=== PATIENT | male | born 1950 | race Caucasian/White ===

== ENCOUNTER 2016-10-05 14:57 | Emergency (ER) | payer OTHER ==
--- NOTE | 2016-10-05 15:22 | ER Document Report ---
ED General - General Chief Complaint: Flu Symptoms Stated Complaint: BODY PAIN Time Seen by Provider: 10/05/16 15:15 Mode of Arrival: Ambulatory Information source: Patient Notes: 65-year-old male presents with one-day duration of fevers cough. Patient admits to sore throat denies any history smoking has a history of prostate enlargement Patient admits to diarrhea TRAVEL OUTSIDE OF THE [place]S. IN LAST 30 DAYS: No - HPI Onset: Yesterday Onset/Duration: Sudden Quality of pain: Achy Severity: Mild Pain Level: 1 Associated symptoms: Body/muscle aches, Diarrhea Exacerbated by: Denies Relieved by: Denies Similar symptoms previously: No Recently seen / treated by doctor: No - Related Data Allergies/Adverse Reactions: No Known Allergies Allergy (Verified 10/05/16 15:06) Past Medical History - Social History Smoking Status: Former Smoker Cigarette use (# per day): No Chew tobacco use (# tins/day): No Smoking Education Provided: No Frequency of alcohol use: None Drug Abuse: None Family History: Reviewed & Not Pertinent Patient has suicidal ideation: No Patient has homicidal ideation: No Renal/ Medical History: Denies: Hx Peritoneal Dialysis Surgical Hx: Negative - Immunizations Hx Diphtheria, Pertussis, Tetanus Vaccination: No Review of Systems - Review of Systems Notes: PHYSICAL EXAMINATION: GENERAL: Well-appearing, well-nourished and in no acute distress. HEAD: Atraumatic, normocephalic. EYES: Pupils equal round and reactive to light, extraocular movements intact, sclera anicteric, conjunctiva are normal. ENT: Nares patent, oropharynx clear without exudates. Moist mucous membranes. NECK: Normal range of motion, supple without lymphadenopathy LUNGS: Breath sounds clear to auscultation bilaterally and equal. No wheezes rales or rhonchi. HEART: Regular rate and rhythm without murmurs ABDOMEN: Soft, nontender, nondistended abdomen. No guarding, no rebound. No masses appreciated. Musculoskeletal: Normal range of motion, no pitting or edema. No cyanosis. NEUROLOGICAL: Cranial nerves grossly intact. Normal speech, normal gait. Normal sensory, motor exams PSYCH: Normal mood, normal affect. SKIN: Warm, Dry, normal turgor, no rashes or lesions noted. Physical Exam - Vital signs Vitals: Temp Pulse Resp BP Pulse Ox 98.4 F 62 18 122/67 96 10/05/16 15:06 10/05/16 15:06 10/05/16 15:06 10/05/16 15:06 10/05/16 15:06 Course - Re-evaluation Re-evalutation: 10/05/16 15:23 Patient overall looks well strep and flu and x-ray pending otherwise vital signs are stable patient is in no distress 10/05/16 15:58 Strep was positive, patient does admit to family member had strep one week ago We'll start patient on antibiotics no allergies noted Patient instructed on risks and benefits of medications prescribed. Denies any concerns regarding such. After performing a Medical Screening Examination, I estimate there is LOW risk for ACUTE CORONARY SYNDROME, RESPIRATORY FAILURE, SEPSIS OR MENINGITIS, thus I consider the discharge disposition reasonable. I have reevaluated this patient multiple times and no significant life threatening changes are noted. The patient and I have discussed the diagnosis and risks, and we agree with discharging home with close follow-up. We also discussed returning to the Emergency Department immediately if new or worsening symptoms occur. We have discussed the symptoms which are most concerning (e.g., changing or worsening pain, trouble swallowing or breathing, neck stiffness, fever) that necessitate immediate return. - Vital Signs Vital signs: Temp Pulse Resp BP Pulse Ox 98.4 F 62 18 122/67 96 10/05/16 15:06 10/05/16 15:06 10/05/16 15:06 10/05/16 15:06 10/05/16 15:06 - Diagnostic Test Radiology reviewed: Image reviewed, Reports reviewed - No acute abnormality Discharge - Discharge Clinical Impression: Strep pharyngitis, Body aches Fever Qualifiers: Fever type: unspecified Qualified Code(s): R50.9 - Fever, unspecified Condition: Stable Disposition: HOME, SELF-CARE Instructions: Strep Throat ([facility]) Additional Instructions: Follow up with your physician tomorrow for further care or return to the ED IMMEDIATELY if symptoms worsen or new concerns occur. If you cannot afford to follow up with your primary care physician a list of low cost clinics have been provided at the end of your discharge papers as well. Prescriptions: Amoxicillin 875 mg PO BID #20 tablet
[2016-10-05 16:00] VITALS: BP 114/67
[2016-10-05] MEDS ORDERED: ACETAMINOPHEN SUSP 160 MG/5 ML ORAL SYRING ONE (19:27)
== END 2016-10-05 16:02 | disposition home or self-care (01) ==
LOC: ER 14:57
DX: J02.0 Streptococcal pharyngitis (principal); R52 Pain, unspecified; R50.9 Fever, unspecified; R05 Cough; J02.9 Acute pharyngitis, unspecified; Z87.891 Personal history of nicotine dependence
CPT/HCPCS: 71020; 87804; 87880; 99283

== ENCOUNTER 2018-04-23 11:15 | Emergency (ER) | payer OTHER ==
--- NOTE | 2018-04-23 12:16 | ER Document Report ---
ED Medical Screen (RME) - General TRAVEL OUTSIDE OF THE U.S. IN LAST 30 DAYS: No <JOSE MIGUEL ENG - Last Filed: 04/23/18 12:15> <RICHARD GARRETT - Last Filed: 04/23/18 16:36> - General Chief Complaint: Abdominal Pain Stated Complaint: ABDOMINAL PAIN Time Seen by Provider: 04/23/18 12:14 Notes: 67 years old male with a history of BPH and hyperlipidemia presents today with sudden onset of right lower quadrant abdominal pain since this morning around 730. Since it is been persistent since then and increase in intensity starting to have nausea. No fever chills or other constitutional symptoms. Pain radiating down the leg according to him. Sharp tenderness noted over the right lower quadrant no rebound tenderness or guarding. (JOSE MIGUEL ENG) - Related Data Allergies/Adverse Reactions: No Known Allergies Allergy (Verified 10/05/16 15:06) Past Medical History - Social History Chew tobacco use (# tins/day): No Frequency of alcohol use: None Drug Abuse: None Renal/ Medical History: Denies: Hx Peritoneal Dialysis Past Surgical History: Reports: Hx Orthopedic Surgery - left elbow - Immunizations Hx Diphtheria, Pertussis, Tetanus Vaccination: No <JOSE MIGUEL ENG - Last Filed: 04/23/18 12:15> - Vital signs Vitals: Temp Pulse Resp BP Pulse Ox 97.6 F 78 20 150/97 H 94 04/23/18 11:32 04/23/18 11:32 04/23/18 11:32 04/23/18 11:32 04/23/18 11:32 Course - Laboratory Result Diagrams: 04/23/18 12:24 04/23/18 12:24 <RICHARD GARRETT - Last Filed: 04/23/18 16:36> - Vital Signs Vital signs: Temp Pulse Resp BP Pulse Ox 97.6 F 78 20 150/97 H 94 04/23/18 11:32 04/23/18 11:32 04/23/18 11:32 04/23/18 11:32 04/23/18 11:32 - Laboratory Laboratory results interpreted by me: 04/23/18 04/23/18 12:24 12:24 RBC 5.72 H Est GFR (Non-Af Amer) 59 L
[2018-04-23] MEDS ORDERED: ONDANSETRON HCL INJ/PF 4 MG/2 ML SDV IV ONE (12:26)
[2018-04-23] MEDS ORDERED: NORMAL SALINE 1000 ML 1,000 ML IV ONE (12:29)
[2018-04-23 12:41] LABS: ABSOLUTE BASOPHILS # (AUTO) 0.1 10^3/uL (0.0-0.2); ABSOLUTE LYMPHOCYTES (AUTO) 1.9 10^3/uL (0.5-4.7); ABSOLUTE MONOCYTES (AUTO) 0.8 10^3/uL (0.1-1.4); ABSOLUTE NEUT (AUTO) 4.6 10^3/uL (1.7-8.2); BASOPHILS % (AUTO) 0.7 % (0-2); EOSINOPHILS % (AUTO) 0.5 % (0-6); HEMATOCRIT 47.8 % (37.9-51.0); HEMOGLOBIN 16.6 g/dL (13.5-17.0); LYMPHOCYTES % (AUTO) 26.2 % (13-45); MEAN CORPUSCULAR HEMOGLOBIN 29.1 pg (27.0-33.4); MEAN CORPUSCULAR HGB CONC 34.7 g/dL (32.0-36.0); MEAN CORPUSCULAR VOLUME 84 fl (80-97); MONOCYTES % (AUTO) 10.4 % (3-13); PLATELET COUNT 253 10^3/uL (150-450); RED BLOOD COUNT 5.72 10^6/uL (4.35-5.55); RED CELL DISTRIBUTION WIDTH 13.7 % (11.5-14.0); SEGMENTED NEUTROPHILS % (AUTO) 62.2 % (42-78); TOTAL CELLS COUNTED % (AUTO) 100 %; WHITE BLOOD COUNT 7.4 10^3/uL (4.0-10.5)
[2018-04-23 12:52] LABS: APPEARANCE,URINE CLEAR; BILIRUBIN,URINE NEGATIVE (NEGATIVE); COLOR,URINE YELLOW; GLUCOSE, URINE NEGATIVE (NEGATIVE); KETONES,URINE NEGATIVE (NEGATIVE); LEUKOCYTE ESTERASE,URINE NEGATIVE (NEGATIVE); NITRITE,URINE NEGATIVE (NEGATIVE); PROTEIN,URINE NEGATIVE (NEGATIVE); URINE SPECIFIC GRAVITY 1.017; UROBILINOGEN,URINE NEGATIVE mg/dL (<2.0)
[2018-04-23 12:55] LABS: ALANINE AMINOTRANSFERASE 26 U/L (21-72); ALBUMIN 4.4 g/dL (3.5-5.0); ALKALINE PHOSPHATASE 106 U/L (38-126); ANION GAP 13 (5-19); ASPARTATE AMINO TRANSFERASE 21 U/L (17-59); BILIRUBIN,DIRECT 0.3 mg/dL (0.0-0.4); BILIRUBIN,TOTAL 0.7 mg/dL (0.2-1.3); BLOOD UREA NITROGEN 16 mg/dL (7-20); CALCIUM 9.8 mg/dL (8.4-10.2); CARBON DIOXIDE 27 mmol/L (22-30); CHLORIDE 103 mmol/L (98-107); GLUCOSE 108 mg/dL (75-110); POTASSIUM 4.5 mmol/L (3.6-5.0); SODIUM 142.5 mmol/L (137-145); TOTAL PROTEIN 7.7 g/dL (6.3-8.2)
[2018-04-23] MEDS ORDERED: KETOROLAC TROMETHAMINE INJ/PF 30 MG/1 ML SDV IV ONE (14:25)
[2018-04-23] MEDS ORDERED: ONDANSETRON HCL INJ/PF 4 MG/2 ML SDV ONE (14:46)
--- NOTE | 2018-04-23 15:44 | RADIOLOGY REPORT (SQ) ---
EXAM DESCRIPTION: CT ABD/PELVIS WITH IV ORAL COMPLETED DATE/TIME: 04/23/2018 3:20 pm REASON FOR STUDY: Right lower quadrant pain rule out appendicitis COMPARISON: None. TECHNIQUE: CT scan of the abdomen and pelvis performed using helical scanning technique with dynamic intravenous contrast injection. No oral contrast. Images reviewed with lung, soft tissue, and bone windows. Reconstructed coronal and sagittal MPR images reviewed. Delayed images for evaluation of the urinary system also acquired. All images stored on PACS. All CT scanners at this facility use dose modulation, iterative reconstruction, and/or weight based d osing when appropriate to reduce radiation dose to as low as reasonably achievable (ALARA). [facility]: Dose Right [facility]: CareDose [facility]: Dose Right [facility]: Teradose 4D [facility]: POKKT CONTRAST TYPE AND DOSE: contrast/concentration: Isovue 350.00 mg/ml; Total Contrast Delivered: 100.0 ml; Total Saline Delivered: 72.0 ml RENAL FUNCTION: GFR 59. RADIATION DOSE: CT Rad equipment meets quality standard of care and radiation dose reduction techniq ues were employed. CTDIvol: 10.5 - 15.5 mGy. DLP: 1454 mGy-cm.. LIMITATIONS: None. FINDINGS: LOWER CHEST: No significant findings. No nodules or infiltrates. LIVER: Normal size. No masses. No dilated ducts. SPLEEN: Normal size. No focal lesions. PANCREAS: No masses. No significant calcifications. No adjacent inflammation or peripancreatic fluid collections. Pancreatic duct not dilated. GALLBLADDER: No identified stones by CT criteria. No inflammatory changes to suggest cholecystitis. ADRENAL GLANDS: No significant masses or asymmetry. RIGHT KIDNEY AND URETER: No solid masses. No significant calcifications. No hydronephrosis or hyd roureter. LEFT KIDNEY AND URETER: No solid masses. No significant calcifications. No hydronephrosis or hydr oureter. AORTA AND VESSELS: No aneurysm. No dissection. Renal arteries, SMA, celiac without stenosis. RETROPERITONEUM: No retroperitoneal adenopathy, hemorrhage or masses. BOWEL AND PERITONEAL CAVITY: Scattered diverticuli in the descending and sigmoid colon. No masses or inflammatory changes. No free fluid or peritoneal masses. APPENDIX: Normal. PELVIS: No mass. No free fluid. Normal bladder. ABDOMINAL WALL: No masses. No hernias. BONES: No significant or acute findings. OTHER: No other significant finding. IMPRESSION: COLONIC DIVERTICULOSIS. NO CT EVIDENCE OF DIVERTICULITIS. NO OTHER SIGNIFICANT OR ACUT E FINDING IN THE ABDOMEN OR PELVIS ON CT SCAN WITH IV CONTRAST. NORMAL APPENDIX. TECHNICAL DOCUMENTATION: JOB ID: [id number] Quality ID # [id number]: Final reports with documentation of one or more dose reduction techniques (e.g., Au tomated exposure control, adjustment of the mA and/or kV according to patient size, use of iterative reconstruction technique) 2010 [employer]- All Rights Reserved Reading location - IP/workstation name: [email or web address]
--- NOTE | 2018-04-23 16:38 | ER Document Report ---
ED GI/ - General Chief Complaint: Abdominal Pain Stated Complaint: ABDOMINAL PAIN Time Seen by Provider: 04/23/18 12:14 Mode of Arrival: Ambulatory Information source: Patient Notes: Patient is a 67-year-old male who was sent to the emergency room by [facility]. 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 He states he was at work today and he was starting to go up steps as he lifted his right leg up to make a step he felt severe pain in his right lower quadrant he states felt like a "hot knife in butter" in his right lower quadrant. He states he first went to the [facility] and was evaluated and the provider felt that he needed further evaluation because of some of his movements with his legs indicated he might have a retrograde appendix. And so he was sent to the [facility] where they reevaluated him and told him he needed to come to [facility] ER and get evaluated. Patient states his pain when he moves is close to 8 or 9. Out of 10. He states that when he is just laying there it is a 3 or 4. He denies any nausea or vomiting denies any other symptoms. But states that it is right lower quadrant more lateral and inferior than the umbilicus. He denies any nausea or vomiting. Patient denies any testicular pain. He has no scrotal sac pain. No discomfort and the male genitalia area at all. TRAVEL OUTSIDE OF THE [place] IN LAST 30 DAYS: No - HPI Patient complains to provider of: Abdominal pain. No: Urinary retention Onset: This afternoon Timing/Duration: Sudden, Persistent, Better Quality of pain: Burning, Sharp, Stabbing Severity at maximum: Severe Severity in ED: Moderate Pain Level: 3 Location: RLQ Sexual history: Inactive Associated symptoms: denies: Constipation, Diarrhea, Dysuria, Vomiting Exacerbated by: Standing, Movement, Walking Relieved by: Supine, Remaining still Similar symptoms previously: No Recently seen / treated by doctor: No - Related Data Allergies/Adverse Reactions: No Known Allergies Allergy (Verified 10/05/16 15:06) Past Medical History - General Information source: Patient - Social History Smoking Status: Never Smoker Cigarette use (# per day): No Chew tobacco use (# tins/day): No Smoking Education Provided: No Frequency of alcohol use: None Drug Abuse: None Family History: Reviewed & Not Pertinent Patient has suicidal ideation: No Patient has homicidal ideation: No Renal/ Medical History: Denies: Hx Peritoneal Dialysis Past Surgical History: Reports: Hx Orthopedic Surgery - left elbow - Immunizations Hx Diphtheria, Pertussis, Tetanus Vaccination: No Review of Systems - Review of Systems Constitutional: No symptoms reported EENT: No symptoms reported Cardiovascular: No symptoms reported Respiratory: No symptoms reported Gastrointestinal: See HPI, Abdominal pain Genitourinary: No symptoms reported Male Genitourinary: No symptoms reported Musculoskeletal: No symptoms reported Skin: No symptoms reported Hematologic/Lymphatic: No symptoms reported Neurological/Psychological: No symptoms reported -: Yes All other systems reviewed and negative Physical Exam - Vital signs Vitals: Temp Pulse Resp BP Pulse Ox 97.6 F 78 20 150/97 H 94 04/23/18 11:32 04/23/18 11:32 04/23/18 11:32 04/23/18 11:32 04/23/18 11:32 Interpretation: Hypertensive - Notes Notes: PHYSICAL EXAMINATION: GENERAL: patient is a well-nourished well-developed obese 67-year-old male who is in relatively good shape besides his weight. He is in no distress on physical examination is lying back in the gurney feeling relatively comfortable. HEAD: Atraumatic, normocephalic. EYES: Pupils equal round and reactive to light, extraocular movements intact, sclera anicteric, conjunctiva are normal. NECK: Normal range of motion, supple without lymphadenopathy LUNGS: Breath sounds clear to auscultation bilaterally and equal. No wheezes rales or rhonchi. HEART: Regular rate and rhythm without murmurs ABDOMEN: Examination of the abdomen shows patient has bowel sounds in all 4 quads although they are moderately quiet. He has distention that is noted in diffuse tympany to percussion greater in the upper quadrants than lower but present in all. Examination the area of question in the right lower quadrant shows it to be more inferior and lateral than it is umbilical. Deep palpation barely brings any discomfort to patient in the area which she states is the discomfort. When patient applies his finger to the exact spot of pain and he does a partial sit up I can palpate a little defect in the abdominal muscle wall. This is where his discomfort appears to be coming from. Testicular exam shows a good cremaster reflex and also shows both testicles hanging normal in length. There is no tenderness or pain to the examination of the male genitalia. Musculoskeletal: Normal range of motion, no pitting or edema. No cyanosis. NEUROLOGICAL: Normal speech, normal gait. Normal sensory, motor exams PSYCH: Normal mood, normal affect. SKIN: Warm, Dry, normal turgor, no rashes or lesions noted. Course - Re-evaluation Re-evalutation: 04/23/18 18:32 Patient's your course of stay was very uneventful. His labs were all normal his CT showed some diverticulosis but no diverticulitis. No abnormalities hardly at all. Since patient had no white count and no fever and his discomfort had gotten better I did not feel appropriate to treat with antibiotics at this time for a diverticulitis that was brewing. I believe that he has torn abdominal muscle in the right lower quadrant area. I do not feel herniation on physical examination although the defect is minimal I believe that this is where his discomfort is coming from so a defect in the abdominal wall muscle. I have discussed this with patient and informed him that anything can change and if he has increasing pain or discomfort if he has nausea or vomiting or he has testicular pain or discomfort to return to ER for recheck. - Vital Signs Vital signs: Temp Pulse Resp BP Pulse Ox 97.6 F 67 16 169/90 H 97 04/23/18 17:31 04/23/18 17:31 04/23/18 17:31 04/23/18 17:31 04/23/18 17:31 - Laboratory Result Diagrams: 04/23/18 12:24 04/23/18 12:24 Laboratory results interpreted by me: 04/23/18 04/23/18 12:24 12:24 RBC 5.72 H Est GFR (Non-Af Amer) 59 L Discharge - Discharge Clinical Impression: Abdominal pain Qualifiers: Abdominal location: right lower quadrant Qualified Code(s): R10.31 - Right lower quadrant pain Abdominal wall strain Qualifiers: Encounter type: initial encounter Qualified Code(s): S39.011A - Strain of muscle, fascia and tendon of abdomen, initial encounter Condition: Stable Disposition: HOME, SELF-CARE Instructions: Abdominal Pain ([facility]), Antispasmodics ([facility]), Family Physicians / Practices, Inguinal Strain ([facility]), Muscle Strain ([facility]) Additional Instructions: Home today and rest. Rest of the rest of the weekend. No lifting moving or pulling. As of indicated here CT and labs were normal. I believe that you have pulled a muscle in your lower abdominal area. Sometimes this is as bad as hurting the rib because anytime you lift move or pulled a muscle pull also you have pain. I am giving you a muscle relaxer for discomfort he may take Tylenol as well every 8 hours. Ibuprofen if you want to in between. Basically this means you can take Tylenol and then 4 hours later take Advil or ibuprofen and Tylenol 4 hours later Advil 4 hours after that. You can use ice or moist heat to the area for discomfort 3 times a day. I like to do ice for the first 48 hours and then moist heat after that. You may attempt to do her normal activities on Friday if you still have pain and discomfort you may want to follow-up with your primary care provider for recheck. As always he can return to ER for recheck if you have any concerns or problems over the weekend. Remember not to take more than 3 g of Tylenol in a 24-hour period either a all at once or in combination with any other Tylenol products. Prescriptions: Hydrocodone/Acetaminophen [Gaylord 5-325 Tablet] 1 each PO Q6 PRN #10 tablet PRN Reason: Methocarbamol [Robaxin 500 mg Tablet] 500 mg PO BID PRN #20 tablet PRN Reason: Forms: Elevated Blood Pressure, Return to Work
[2018-04-23 17:32] VITALS: BP 169/90
== END 2018-04-23 17:32 | disposition home or self-care (01) ==
LOC: ER 11:15
DX: S39.011A Strain of muscle, fascia and tendon of abdomen, initial encounter (principal); R10.31 Right lower quadrant pain; X58.XXXA Exposure to other specified factors, initial encounter
CPT/HCPCS: 99284; 96361; 96374; 96375; 36415; 83690; 85025; 80053; 81001; 74177; J1885; J2405; J7030

== ENCOUNTER 2018-12-09 12:55 | Inpatient (IN) | payer MEDICARE, OTHER ==
--- NOTE | 2018-12-09 13:38 | ER Document Report ---
ED Medical Screen (RME) - General Chief Complaint: Urinary Frequency Stated Complaint: URINARY PROBLEMS Time Seen by Provider: 12/09/18 13:33 Mode of Arrival: Ambulatory TRAVEL OUTSIDE OF THE [place]. IN LAST 30 DAYS: No - HPI Notes: 12/09/18 13:39 67-year-old male presents to the ED for evaluation of vomiting, tachycardia, abdominal pain, and was told by his primary care provider due to an elevated white count from a UTI that he was diagnosed with a couple days ago. States symptoms are becoming worse, reports weakness and dizziness. states that she noticed she is been breathing faster today, when was brought in, had to come by wheelchair because he is unable to stand. Is unsure of the antibiotic he has been taking for last couple days. I have greeted and performed a rapid initial assessment of this patient. There is a concern for urosepsis. A comprehensive ED assessment and evaluation of the patient, analysis of test results and completion of the medical decision making process will be conducted by additional ED providers. PHYSICAL EXAMINATION: GENERAL: Well-appearing, well-nourished and in mild distress HEAD: Atraumatic, normocephalic. NECK: Normal range of motion LUNGS: No respiratory distress cv: Sinus tachycardia ABD: Generalized abdominal pain Musculoskeletal: Normal range of motion NEUROLOGICAL: Normal speech, normal gait. PSYCH: Normal mood, normal affect. SKIN: Warm, Dry, normal turgor, no rashes or lesions noted. 12/09/18 13:44 - Related Data Allergies/Adverse Reactions: No Known Allergies Allergy (Verified 12/09/18 13:07) Past Medical History - General Information source: Patient Renal/ Medical History: Denies: Hx Peritoneal Dialysis Past Surgical History: Reports: Hx Orthopedic Surgery - left elbow - Immunizations Hx Diphtheria, Pertussis, Tetanus Vaccination: No
[2018-12-09 14:24] LABS: PARTIAL THROMBOPLASTIN TIME 33.9 SEC (23.5-35.8); PROTHROMBIN TIME 16.3 SEC (11.4-15.4)
[2018-12-09 14:26] LABS: HEMATOCRIT 48.6 % (37.9-51.0); HEMOGLOBIN 16.5 g/dL (13.5-17.0); MEAN CORPUSCULAR HEMOGLOBIN 28.6 pg (27.0-33.4); MEAN CORPUSCULAR VOLUME 84 fl (80-97); PLATELET COUNT 189 10^3/uL (150-450); RED BLOOD COUNT 5.77 10^6/uL (4.35-5.55); RED CELL DISTRIBUTION WIDTH 14.2 % (11.5-14.0); WHITE BLOOD COUNT 26.7 10^3/uL (4.0-10.5)
[2018-12-09 14:37] LABS: ALANINE AMINOTRANSFERASE 25 U/L (21-72); ALBUMIN 4.4 g/dL (3.5-5.0); ALKALINE PHOSPHATASE 106 U/L (38-126); ANION GAP 17 (5-19); ASPARTATE AMINO TRANSFERASE 24 U/L (17-59); BILIRUBIN,DIRECT 0.8 mg/dL (0.0-0.4); BILIRUBIN,TOTAL 2.1 mg/dL (0.2-1.3); BLOOD UREA NITROGEN 25 mg/dL (7-20); CARBON DIOXIDE 22 mmol/L (22-30); CHLORIDE 95 mmol/L (98-107); CREATINE KINASE 262 U/L (55-170); GLUCOSE 129 mg/dL (75-110); SODIUM 134.1 mmol/L (137-145); TOTAL PROTEIN 7.9 g/dL (6.3-8.2)
--- NOTE | 2018-12-09 14:45 | RADIOLOGY REPORT (SQ) ---
EXAM DESCRIPTION: CHEST SINGLE VIEW COMPLETED DATE/TIME: 12/09/2018 2:35 pm REASON FOR STUDY: tachy, vomiting, uti COMPARISON: None. EXAM PARAMETERS: NUMBER OF VIEWS: One view. TECHNIQUE: Single frontal radiographic view of the chest acquired. RADIATION DOSE: NA LIMITATIONS: None. FINDINGS: LUNGS AND PLEURA: No opacities, masses or pneumothorax. No pleural effusion. MEDIASTINUM AND HILAR STRUCTURES: No masses. Contour normal. HEART AND VASCULAR STRUCTURES: Heart normal in size. Normal vasculature. BONES: No acute findings. HARDWARE: None in the chest. OTHER: No other significant finding. IMPRESSION: NO ACUTE RADIOGRAPHIC FINDING IN THE CHEST. TECHNICAL DOCUMENTATION: JOB ID: [id number] [employer]- All Rights Reserved Reading location - IP/workstation name: [email or web address]
[2018-12-09 14:48] LABS: CREATINE KINASE MB 0.89 ng/mL (<4.55)
[2018-12-09 14:50] LABS: TROPONIN I < 0.012 ng/mL
[2018-12-09 14:53] LABS: ABSOLUTE LYMPHOCYTES# (MANUAL) 0.3 10^3/uL (0.5-4.7); ABSOLUTE MONOCYTES # (MANUAL) 2.4 10^3/uL (0.1-1.4); BAND NEUTROPHILS % (MANUAL) 10 % (3-5); BASOPHILS % (MANUAL) 0 % (0-2); EOSINOPHILS % (MANUAL) 0 % (0-6); LYMPHOCYTES % (MANUAL) 1 % (13-45); MONOCYTES % (MANUAL) 9 % (3-13); SEGMENTED NEUTROPHILS % (MAN) 80 % (42-78); TOTAL CELLS COUNTED 100
[2018-12-09 14:56] LABS: PLATELET COMMENT ADEQUATE; PLATELET LARGE PRESENT; RBC MORPHOLOGY COMMENT NORMO-CYTIC/CHROMIC
[2018-12-09] MEDS ORDERED: NORMAL SALINE 1000 ML 1,000 ML IV ONE ×3 (15:10→18:52)
[2018-12-09] MEDS ORDERED: FENTANYL CITRATE INJ/PF 100 MCG/2 ML AMPUL IV ONE (15:11)
[2018-12-09] MEDS ORDERED: ONDANSETRON HCL INJ/PF 4 MG/2 ML SDV IV ONE (15:11)
[2018-12-09 15:17] LABS: VENOUS BLOOD BASE EXCESS -2.7 mmol/L; VENOUS BLOOD PCO2 33.6 mmHg (35-63); VENOUS BLOOD PH 7.41 (7.30-7.42)
--- NOTE | 2018-12-09 15:18 | ER Document Report ---
Addendum entered and electronically signed by MIRANDA STILL NP 12/09/18 20:33: Course - Vital Signs Vital signs: Temp Pulse Resp BP Pulse Ox 99.3 F 120 H 34 H 143/131 H 99 12/09/18 19:53 12/09/18 13:33 12/09/18 20:01 12/09/18 20:01 12/09/18 20:01 - Laboratory Result Diagrams: 12/09/18 13:58 12/09/18 13:58 Laboratory results interpreted by me: 12/09/18 12/09/18 12/09/18 13:58 13:58 13:58 WBC 26.7 H RBC 5.77 H RDW 14.2 H Seg Neuts % (Manual) 80 H Band Neutrophils % 10 H Lymphocytes % (Manual) 1 L Abs Neuts (Manual) 24.0 H Abs Lymphs (Manual) 0.3 L Abs Monocytes (Manual) 2.4 H PT 16.3 H VBG pCO2 Sodium 134.1 L Chloride 95 L BUN 25 H Creatinine 1.64 H Est GFR ( Amer) 51 L Est GFR (Non-Af Amer) 42 L Glucose 129 H Total Bilirubin 2.1 H Direct Bilirubin 0.8 H Creatine Kinase 262 H Urine Protein Urine Ketones Urine Blood Urine Nitrite Urine Urobilinogen Ur Leukocyte Esterase 12/09/18 12/09/18 14:46 16:17 WBC RBC RDW Seg Neuts % (Manual) Band Neutrophils % Lymphocytes % (Manual) Abs Neuts (Manual) Abs Lymphs (Manual) Abs Monocytes (Manual) PT VBG pCO2 33.6 L Sodium Chloride BUN Creatinine Est GFR ( Amer) Est GFR (Non-Af Amer) Glucose Total Bilirubin Direct Bilirubin Creatine Kinase Urine Protein 100 H Urine Ketones 20 H Urine Blood MODERATE H Urine Nitrite POSITIVE H Urine Urobilinogen 2.0 H Ur Leukocyte Esterase LARGE H - EKG Interpretation by Me Rate: Tachycardia Additional EKG results interpreted by me: 12/09/18 20:33 Sinus tach rate of 111, QTc 441 Original Note: ED GI/ - General Chief Complaint: Urinary Frequency Stated Complaint: URINARY PROBLEMS Time Seen by Provider: 12/09/18 13:33 Mode of Arrival: Ambulatory Information source: Patient Notes: Patient presents with complaint of UTI. Patient states that he was placed on antibiotics 3 days ago although denies any improvement. Patient reports nausea vomiting and diarrhea today. Patient vomited once and had diarrhea x3 episodes. Patient reports fever of 101.1 today. Patient does complain of dysuria, frequency with some decreased urine output. Patient reports lower abdominal pain. Patient complains of low back pain and bilateral lower extremity pain. Patient states that his gait is off and he is walking as though he is drunk. Patient had outpatient lab work done in the office which showed an elevated white blood cell count and was advised to come here for further evaluation. TRAVEL OUTSIDE OF THE [place] IN LAST 30 DAYS: No - HPI Patient complains to provider of: Abdominal pain, Vomiting. No: Testicular pain Onset: Other - 3 days Timing/Duration: Worse Quality of pain: Achy Pain Level: 3 Location: Pelvis Associated symptoms: Diarrhea, Fever, Nausea, Urinary frequency, Vomiting. denies: Chest pain, Dizzy, Loss of appetite, Urinary hesitancy Exacerbated by: Denies Relieved by: Denies Similar symptoms previously: No Recently seen / treated by doctor: Yes - Related Data Allergies/Adverse Reactions: No Known Allergies Allergy (Verified 12/09/18 13:07) Past Medical History - General Information source: Patient - Social History Smoking Status: Former Smoker Frequency of alcohol use: None Drug Abuse: None Occupation: Cardiopulmonary Specialist Lives with: Family Family History: Reviewed & Not Pertinent Patient has suicidal ideation: No Patient has homicidal ideation: No - Past Medical History Cardiac Medical History: Denies: Hx Hypertension Endocrine Medical History: Denies: Hx Diabetes Mellitus Type 1, Hx Diabetes Mellitus Type 2 Renal/ Medical History: Reports: Hx Benign Prostatic Hyperplasia. Denies: Hx Kidney Stones, Hx Peritoneal Dialysis Past Surgical History: Reports: Hx Orthopedic Surgery - left elbow - Immunizations Hx Diphtheria, Pertussis, Tetanus Vaccination: No Review of Systems - Review of Systems Constitutional: Fever, Recent illness - Recently treated for UTI EENT: No symptoms reported Cardiovascular: No symptoms reported. denies: Chest pain, Dizziness, Lightheaded Respiratory: Other - Tachypnea. denies: Cough Gastrointestinal: Abdominal pain, Nausea, Vomiting Genitourinary: Dysuria. denies: Flank pain Male Genitourinary: No symptoms reported Musculoskeletal: Back pain - Low back pain, Muscle pain - Right lateral leg pain Skin: No symptoms reported Hematologic/Lymphatic: No symptoms reported Neurological/Psychological: Weakness. denies: Lost consciousness, Headaches Physical Exam - Vital signs Vitals: Temp Pulse Resp BP Pulse Ox 98.8 F 120 H 38 H 136/91 H 96 12/09/18 13:33 12/09/18 13:33 12/09/18 13:33 12/09/18 13:33 12/09/18 13:33 - General General appearance: Alert In distress: Mild - HEENT Head: Normocephalic, Atraumatic Eyes: Normal Conjunctiva: Normal Nasal: Normal Mouth/Lips: Normal Mucous membranes: Dry Pharynx: Normal Neck: Normal - Respiratory Respiratory status: Tachypnea Chest status: Nontender Breath sounds: Normal Chest palpation: Normal - Cardiovascular Rhythm: Tachycardia Heart sounds: S1 appreciated, S2 appreciated Murmur: No - Abdominal Inspection: Normal Distension: No distension Bowel sounds: Normal Tenderness: Tender - lower pelvic Organomegaly: No organomegaly - Back Back: Tender - Lumbar paraspinal. No: CVA tenderness - Extremities General upper extremity: Normal inspection, Normal ROM General lower extremity: Normal inspection, Normal ROM - Neurological Neuro grossly intact: Yes Cognition: Normal Conway Coma Scale Eye Opening: Spontaneous Conway Coma Scale Verbal: Oriented Conway Coma Scale Motor: Obeys Commands Sameera Coma Scale Total: 15 - Psychological Associated symptoms: Normal affect, Normal mood - Skin Skin Temperature: Warm Skin Moisture: Dry Skin Color: Normal Course - Re-evaluation Re-evalutation: 12/09/18 15:[address] Bailey regarding patient presentation and antibiotic choice. Recommends empiric treatment for prostatitis given history of UTI symptoms without flank pain. Patient is pending CT imaging at this time. 12/09/18 17:[address] Vital regarding need for admission. Recommends having janice Roberts SENIOR CLINICIAN admit patient to telemetry. 12/09/18 17:46 Consulted with Janice Roberts SENIOR CLINICIAN regarding need for admission. Agrees to accept patient to telemetry at this time. - Vital Signs Vital signs: Temp Pulse Resp BP Pulse Ox 99.3 F 120 H 36 H 141/90 H 95 12/09/18 19:53 12/09/18 13:33 12/09/18 19:51 12/09/18 19:51 12/09/18 19:51 - Laboratory Result Diagrams: 12/09/18 13:58 12/09/18 13:58 Laboratory results interpreted by me: 12/09/18 12/09/18 12/09/18 13:58 13:58 13:58 WBC 26.7 H RBC 5.77 H RDW 14.2 H Seg Neuts % (Manual) 80 H Band Neutrophils % 10 H Lymphocytes % (Manual) 1 L Abs Neuts (Manual) 24.0 H Abs Lymphs (Manual) 0.3 L Abs Monocytes (Manual) 2.4 H PT 16.3 H VBG pCO2 Sodium 134.1 L Chloride 95 L BUN 25 H Creatinine 1.64 H Est GFR ( Amer) 51 L Est GFR (Non-Af Amer) 42 L Glucose 129 H Total Bilirubin 2.1 H Direct Bilirubin 0.8 H Creatine Kinase 262 H Urine Protein Urine Ketones Urine Blood Urine Nitrite Urine Urobilinogen Ur Leukocyte Esterase 12/09/18 12/09/18 14:46 16:17 WBC RBC RDW Seg Neuts % (Manual) Band Neutrophils % Lymphocytes % (Manual) Abs Neuts (Manual) Abs Lymphs (Manual) Abs Monocytes (Manual) PT VBG pCO2 33.6 L Sodium Chloride BUN Creatinine Est GFR ( Amer) Est GFR (Non-Af Amer) Glucose Total Bilirubin Direct Bilirubin Creatine Kinase Urine Protein 100 H Urine Ketones 20 H Urine Blood MODERATE H Urine Nitrite POSITIVE H Urine Urobilinogen 2.0 H Ur Leukocyte Esterase LARGE H 12/09/18 20:20 Labs- Entire Visit 12/09/18 12/09/18 12/09/18 13:58 13:58 13:58 WBC 26.7 H RBC 5.77 H Hgb 16.5 Hct 48.6 MCV 84 MCH 28.6 MCHC 34.0 RDW 14.2 H Plt Count 189 Total Counted 100 Seg Neutrophils % Not Reportable Seg Neuts % (Manual) 80 H Band Neutrophils % 10 H Lymphocytes % Not Reportable Lymphocytes % (Manual) 1 L Monocytes % Not Reportable Monocytes % (Manual) 9 Eosinophils % Not Reportable Eosinophils % (Manual) 0 Basophils % Not Reportable Basophils % (Manual) 0 Absolute Neutrophils Not Reportable Abs Neuts (Manual) 24.0 H Absolute Lymphocytes Not Reportable Abs Lymphs (Manual) 0.3 L Absolute Monocytes Not Reportable Abs Monocytes (Manual) 2.4 H Absolute Eosinophils Not Reportable Absolute Eos (Manual) 0.0 Absolute Basophils Not Reportable Abs Basophils (Manual) 0.0 Dohle Bodies PRESENT Large Platelets PRESENT Platelet Comment ADEQUATE RBC Morph Comment NORMO-CYTIC/CHROMIC PT 16.3 H INR 1.30 APTT 33.9 VBG pH VBG pCO2 VBG HCO3 VBG Base Excess Sodium 134.1 L Potassium 4.0 Chloride 95 L Carbon Dioxide 22 Anion Gap 17 BUN 25 H Creatinine 1.64 H Est GFR ( Amer) 51 L Est GFR (Non-Af Amer) 42 L Glucose 129 H Lactic Acid Calcium 9.0 Total Bilirubin 2.1 H Direct Bilirubin 0.8 H Neonat Total Bilirubin Not Reportable Neonat Direct Bilirubin Not Reportable Neonat Indirect Bili Not Reportable AST 24 ALT 25 Alkaline Phosphatase 106 Creatine Kinase 262 H CK-MB (CK-2) Troponin I Total Protein 7.9 Albumin 4.4 Lipase Urine Color Urine Appearance Urine pH Ur Specific Randolph Urine Protein Urine Glucose (UA) Urine Ketones Urine Blood Urine Nitrite Urine Bilirubin Urine Urobilinogen Ur Leukocyte Esterase Urine WBC (Auto) Urine RBC (Auto) Urine Bacteria (Auto) Urine WBC Clumps Squamous Epi Cells Auto U Non-Squamous Epis Auto Urine Mucus (Auto) Urine Ascorbic Acid 12/09/18 12/09/18 12/09/18 13:58 13:58 13:58 WBC RBC Hgb Hct MCV MCH MCHC RDW Plt Count Total Counted Seg Neutrophils % Seg Neuts % (Manual) Band Neutrophils % Lymphocytes % Lymphocytes % (Manual) Monocytes % Monocytes % (Manual) Eosinophils % Eosinophils % (Manual) Basophils % Basophils % (Manual) Absolute Neutrophils Abs Neuts (Manual) Absolute Lymphocytes Abs Lymphs (Manual) Absolute Monocytes Abs Monocytes (Manual) Absolute Eosinophils Absolute Eos (Manual) Absolute Basophils Abs Basophils (Manual) Dohle Bodies Large Platelets Platelet Comment RBC Morph Comment PT INR APTT VBG pH VBG pCO2 VBG HCO3 VBG Base Excess Sodium Potassium Chloride Carbon Dioxide Anion Gap BUN Creatinine Est GFR ( Amer) Est GFR (Non-Af Amer) Glucose Lactic Acid 2.0 Calcium Total Bilirubin Direct Bilirubin Neonat Total Bilirubin Neonat Direct Bilirubin Neonat Indirect Bili AST ALT Alkaline Phosphatase Creatine Kinase CK-MB (CK-2) 0.89 Troponin I < 0.012 Total Protein Albumin Lipase 83.7 Urine Color Urine Appearance Urine pH Ur Specific Randolph Urine Protein Urine Glucose (UA) Urine Ketones Urine Blood Urine Nitrite Urine Bilirubin Urine Urobilinogen Ur Leukocyte Esterase Urine WBC (Auto) Urine RBC (Auto) Urine Bacteria (Auto) Urine WBC Clumps Squamous Epi Cells Auto U Non-Squamous Epis Auto Urine Mucus (Auto) Urine Ascorbic Acid 12/09/18 12/09/18 14:46 16:17 WBC RBC Hgb Hct MCV MCH MCHC RDW Plt Count Total Counted Seg Neutrophils % Seg Neuts % (Manual) Band Neutrophils % Lymphocytes % Lymphocytes % (Manual) Monocytes % Monocytes % (Manual) Eosinophils % Eosinophils % (Manual) Basophils % Basophils % (Manual) Absolute Neutrophils Abs Neuts (Manual) Absolute Lymphocytes Abs Lymphs (Manual) Absolute Monocytes Abs Monocytes (Manual) Absolute Eosinophils Absolute Eos (Manual) Absolute Basophils Abs Basophils (Manual) Dohle Bodies Large Platelets Platelet Comment RBC Morph Comment PT INR APTT VBG pH 7.41 VBG pCO2 33.6 L VBG HCO3 21.0 VBG Base Excess -2.7 Sodium Potassium Chloride Carbon Dioxide Anion Gap BUN Creatinine Est GFR ( Amer) Est GFR (Non-Af Amer) Glucose Lactic Acid Calcium Total Bilirubin Direct Bilirubin Neonat Total Bilirubin Neonat Direct Bilirubin Neonat Indirect Bili AST ALT Alkaline Phosphatase Creatine Kinase CK-MB (CK-2) Troponin I Total Protein Albumin Lipase Urine Color YELLOW Urine Appearance CLOUDY Urine pH 6.0 Ur Specific Randolph 1.036 Urine Protein 100 H Urine Glucose (UA) NEGATIVE Urine Ketones 20 H Urine Blood MODERATE H Urine Nitrite POSITIVE H Urine Bilirubin NEGATIVE Urine Urobilinogen 2.0 H Ur Leukocyte Esterase LARGE H Urine WBC (Auto) >182 Urine RBC (Auto) 33 Urine Bacteria (Auto) 3+ Urine WBC Clumps OCC Squamous Epi Cells Auto 1 U Non-Squamous Epis Auto 4 Urine Mucus (Auto) RARE Urine Ascorbic Acid NEGATIVE - Diagnostic Test Radiology reviewed: Reports reviewed Discharge - Discharge Clinical Impression: Bandemia UTI (urinary tract infection) Qualifiers: Urinary tract infection type: site unspecified Hematuria presence: with hematuria Qualified Code(s): N39.0 - Urinary tract infection, site not specified Leukocytosis Qualifiers: Leukocytosis type: bandemia Qualified Code(s): D72.825 - Bandemia Condition: Fair Disposition: ADMITTED INPATIENT Admitting Provider: Zahraa (Hospitalist) Unit Admitted: Telemetry
[2018-12-09] MEDS ORDERED: CEFTRIAXONE 1 GM/D5W RTU 1 GM/50 ML RTUPB IV ONE (15:32)
[2018-12-09] MEDS ORDERED: CIPROFLOXACIN 400 MG/D5W RTU 400 MG/200 ML RTUPB IV ONE (15:33)
[2018-12-09 15:38] LABS: LIPASE 83.7 U/L (23-300)
--- NOTE | 2018-12-09 16:21 | RADIOLOGY REPORT (SQ) ---
EXAM DESCRIPTION: CT ABD/PELVIS WITH IV ONLY COMPLETED DATE/TIME: 12/09/2018 4:09 pm REASON FOR STUDY: lower abd pain, low back pain, +fever, elev WBC COMPARISON: None. TECHNIQUE: CT scan of the abdomen and pelvis performed using helical scanning technique with dynamic intravenous contrast injection. No oral contrast. Images reviewed with lung, soft tissue, and bone windows. Reconstructed coronal and sagittal MPR images reviewed. Delayed images for evaluation of the urinary system also acquired. All images stored on PACS. All CT scanners at this facility use dose modulation, iterative reconstruction, and/or weight based d osing when appropriate to reduce radiation dose to as low as reasonably achievable (ALARA). [facility]: Dose Right [facility]: CareDose [facility]: Dose Right [facility]: Teradose 4D [facility]: Quench CONTRAST TYPE AND DOSE: contrast/concentration: Isovue 300.00 mg/ml; Total Contrast Delivered: 98.0 ml; Total Saline Delivered: 70.0 ml RENAL FUNCTION: GFR > 60. RADIATION DOSE: CT Rad equipment meets quality standard of care and radiation dose reduction techniq ues were employed. CTDIvol: 10.7 - 15.5 mGy. DLP: 1529 mGy-cm.. LIMITATIONS: None. FINDINGS: LOWER CHEST: No significant findings. No nodules or infiltrates. LIVER: Normal size. No masses. No dilated ducts. SPLEEN: Normal size. No focal lesions. PANCREAS: No masses. No significant calcifications. No adjacent inflammation or peripancreatic fluid collections. Pancreatic duct not dilated. GALLBLADDER: No identified stones by CT criteria. No inflammatory changes to suggest cholecystitis. ADRENAL GLANDS: No significant masses or asymmetry. RIGHT KIDNEY AND URETER: No solid masses. No significant calcifications. No hydronephrosis or hyd roureter. LEFT KIDNEY AND URETER: No solid masses. No significant calcifications. No hydronephrosis or hydr oureter. AORTA AND VESSELS: No aneurysm. No dissection. Renal arteries, SMA, celiac without stenosis. RETROPERITONEUM: No retroperitoneal adenopathy, hemorrhage or masses. BOWEL AND PERITONEAL CAVITY: Diverticulosis descending and sigmoid colon. No masses or inflammatory changes. No free fluid or peritoneal masses. APPENDIX: Normal. PELVIS: No mass. No free fluid. Normal bladder. ABDOMINAL WALL: No masses. No hernias. BONES: No significant or acute findings. OTHER: No other significant finding. IMPRESSION: Diverticulosis without evidence of diverticulitis. TECHNICAL DOCUMENTATION: JOB ID: [id number] Quality ID # [id number]: Final reports with documentation of one or more dose reduction techniques (e.g., Au tomated exposure control, adjustment of the mA and/or kV according to patient size, use of iterative reconstruction technique) 2010 [employer]- All Rights Reserved Reading location - IP/workstation name: [email or web address]USReyes
[2018-12-09 16:46] LABS: APPEARANCE,URINE CLOUDY; BILIRUBIN,URINE NEGATIVE (NEGATIVE); GLUCOSE, URINE NEGATIVE (NEGATIVE); KETONES,URINE 20 mg/dL (NEGATIVE); LEUKOCYTE ESTERASE,URINE LARGE (NEGATIVE); NITRITE,URINE POSITIVE (NEGATIVE); PROTEIN,URINE 100 mg/dL (NEGATIVE); URINE SPECIFIC GRAVITY 1.036
[2018-12-09 16:48] LABS: COLOR,URINE YELLOW
[2018-12-09] MEDS ORDERED: ALBUTEROL SULFATE 0.083% NEB 2.5 MG/3 ML AMPUL NEB PRN (18:53)
[2018-12-09] MEDS ORDERED: PROMETHAZINE HCL INJ 25 MG/1 ML VIAL IV PRN (19:01)
[2018-12-09] MEDS ORDERED: ONDANSETRON HCL INJ/PF 4 MG/2 ML SDV IV PRN (19:01)
[2018-12-09] MEDS ORDERED: MAG HYDROX/AL HYDROX/SIMETH SUSP 30 ML UDCUP PO PRN (19:01)
--- NOTE | 2018-12-09 19:05 | EKG REPORT ---
SEVERITY:- ABNORMAL ECG - SINUS TACHYCARDIA NONSPECIFIC T ABNORMALITIES, INFERIOR LEADS NONSPECIFIC ST-T CHANGES INFERIOR AND ANTERIOR LEADS. : Confirmed by: Al Macias MD 09-Dec-2018 19:05:15
--- NOTE | 2018-12-09 19:14 | PDOC H&P ---
History of Present Illness Admission Date/PCP: 12/09/18 17:51 MARILEE RODRIGUEZ PA-C Patient complains of: dysuria History of Present Illness: NAKIA AVINA is a 67 year old male with past medical history significant only for BPH who presented today with a complaint of 3 days of dysuria, urinary frequency, fatigue and chills, and generalized malaise. TMax at home 101.1 Evaluation in the emergency department reveals tachycardia, tachypnea, leukocytosis (WBCs 26.7), with bandemia, LANE (creatinine 1.64 with baseline of 1.22) urinalysis revealing UTI. Chest x-ray, EKG and CT of the abdomen and pelvis are benign. He is referred to the hospitalist service for admission and management of urinary tract infection resulting in sepsis. Past Medical History Cardiac Medical History: Reports: None Pulmonary Medical History: Reports: None EENT Medical History: Reports: None Neurological Medical History: Reports: None Endocrine Medical History: Reports: None Renal/ Medical History: Reports: Other - BPH Malignancy Medical History: Reports: None GI Medical History: Reports: None Musculoskeltal Medical History: Reports: None Skin Medical History: Reports: None Psychiatric Medical History: Reports: None Traumatic Medical History: Reports: None Hematology: Reports: None Infectious Medical History: Reports: None Past Surgical History Past Surgical History: Reports: Orthopedic Surgery - left elbow Social History Information Source: Patient Lives with: Family Smoking Status: Former Smoker Frequency of Alcohol Use: None Hx Recreational Drug Use: No Hx Prescription Drug Abuse: No - Advance Directive Resuscitation Status: Full Code Surrogate healthcare decision maker:: Patient's Family History Family History: Reviewed & Not Pertinent Parental Family History Reviewed: Yes Children Family History Reviewed: Yes Sibling(s) Family History Reviewed.: Yes Medication/Allergy Allergies/Adverse Reactions: No Known Allergies Allergy (Verified 12/09/18 13:07) Review of Systems Constitutional: PRESENT: chills, fatigue, fever(s), weakness. ABSENT: headache(s), weight gain, weight loss Eyes: ABSENT: visual disturbances Ears: ABSENT: hearing changes Cardiovascular: ABSENT: chest pain, dyspnea on exertion, edema, orthropnea, palpitations Respiratory: ABSENT: cough, hemoptysis Gastrointestinal: ABSENT: abdominal pain, constipation, diarrhea, hematemesis, hematochezia, nausea, vomiting Genitourinary: PRESENT: dysuria, hematuria Musculoskeletal: ABSENT: joint swelling Integumentary: ABSENT: rash, wounds Neurological: ABSENT: abnormal gait, abnormal speech, confusion, dizziness, focal weakness, syncope Psychiatric: ABSENT: anxiety, depression, homidical ideation, suicidal ideation Endocrine: ABSENT: cold intolerance, heat intolerance, polydipsia, polyuria Hematologic/Lymphatic: ABSENT: easy bleeding, easy bruising Physical Exam Vital Signs: Temp Pulse Resp BP Pulse Ox 98.8 F 120 H 37 H 141/86 H 94 12/09/18 13:33 12/09/18 13:33 12/09/18 16:04 12/09/18 15:01 12/09/18 16:04 Intake & Output 12/08/18 12/09/18 12/10/18 06:59 06:59 06:59 Intake Total 1050 Balance 1050 Weight 90 kg General appearance: PRESENT: no acute distress, disheveled, obese, well- developed, well-nourished Head exam: PRESENT: atraumatic, normocephalic Eye exam: PRESENT: conjunctiva pink, EOMI, PERRLA. ABSENT: scleral icterus Ear exam: PRESENT: normal external ear exam Mouth exam: PRESENT: moist, tongue midline Neck exam: ABSENT: carotid bruit, JVD, lymphadenopathy, thyromegaly Respiratory exam: PRESENT: clear to auscultation vikas, symmetrical, tachypnea, unlabored. ABSENT: rales, rhonchi, wheezes Cardiovascular exam: PRESENT: RRR, +S1, +S2, tachycardia. ABSENT: diastolic murmur, rubs, systolic murmur Pulses: PRESENT: normal dorsalis pedis pul Vascular exam: PRESENT: normal capillary refill GI/Abdominal exam: PRESENT: normal bowel sounds, soft, tenderness. ABSENT: distended, guarding, mass, organolmegaly, rebound Rectal exam: PRESENT: deferred Extremities exam: PRESENT: full ROM. ABSENT: calf tenderness, clubbing, pedal edema Neurological exam: PRESENT: alert, awake, oriented to person, oriented to place, oriented to time, oriented to situation, CN II-XII grossly intact. ABSENT: motor sensory deficit Psychiatric exam: PRESENT: appropriate affect, normal mood. ABSENT: homicidal ideation, suicidal ideation Skin exam: PRESENT: dry, intact, warm. ABSENT: cyanosis, rash Results Laboratory Results: 12/09/18 13:58 12/09/18 13:58 12/09/18 12/09/18 12/09/18 13:58 13:58 13:58 WBC 26.7 H RBC 5.77 H Hgb 16.5 Hct 48.6 MCV 84 MCH 28.6 MCHC 34.0 RDW 14.2 H Plt Count 189 Seg Neutrophils % Not Reportable Lymphocytes % Not Reportable Monocytes % Not Reportable Eosinophils % Not Reportable Basophils % Not Reportable Absolute Neutrophils Not Reportable Absolute Lymphocytes Not Reportable Absolute Monocytes Not Reportable Absolute Eosinophils Not Reportable Absolute Basophils Not Reportable VBG pH VBG pCO2 VBG HCO3 VBG Base Excess Sodium 134.1 L Potassium 4.0 Chloride 95 L Carbon Dioxide 22 Anion Gap 17 BUN 25 H Creatinine 1.64 H Est GFR ( Amer) 51 L Est GFR (Non-Af Amer) 42 L Glucose 129 H Lactic Acid 2.0 Calcium 9.0 Total Bilirubin 2.1 H AST 24 ALT 25 Alkaline Phosphatase 106 Total Protein 7.9 Albumin 4.4 Lipase Urine Color Urine Appearance Urine pH Ur Specific [place] Urine Protein Urine Glucose (UA) Urine Ketones Urine Blood Urine Nitrite Ur Leukocyte Esterase Urine WBC (Auto) Urine RBC (Auto) 12/09/18 12/09/18 12/09/18 13:58 14:46 16:17 WBC RBC Hgb Hct MCV MCH MCHC RDW Plt Count Seg Neutrophils % Lymphocytes % Monocytes % Eosinophils % Basophils % Absolute Neutrophils Absolute Lymphocytes Absolute Monocytes Absolute Eosinophils Absolute Basophils VBG pH 7.41 VBG pCO2 33.6 L VBG HCO3 21.0 VBG Base Excess -2.7 Sodium Potassium Chloride Carbon Dioxide Anion Gap BUN Creatinine Est GFR ( Amer) Est GFR (Non-Af Amer) Glucose Lactic Acid Calcium Total Bilirubin AST ALT Alkaline Phosphatase Total Protein Albumin Lipase 83.7 Urine Color YELLOW Urine Appearance CLOUDY Urine pH 6.0 Ur Specific [place] 1.036 Urine Protein 100 H Urine Glucose (UA) NEGATIVE Urine Ketones 20 H Urine Blood MODERATE H Urine Nitrite POSITIVE H Ur Leukocyte Esterase LARGE H Urine WBC (Auto) >182 Urine RBC (Auto) 33 12/09/18 12/09/18 13:58 13:58 Creatine Kinase 262 H CK-MB (CK-2) 0.89 Troponin I < 0.012 Impressions: Chest X-Ray 12/09/18 13:37 IMPRESSION: NO ACUTE RADIOGRAPHIC FINDING IN THE CHEST. Abdomen/Pelvis CT 12/09/18 15:22 IMPRESSION: Diverticulosis without evidence of diverticulitis. Assessment and Plan - Diagnosis (1) Sepsis Is this a current diagnosis for this admission?: Yes Plan: Sepsis due to UTI, present on admission, evidenced by fever, tachycardia, tachypnea, leukocytosis with bandemia, acute kidney injury, and acutely ill appearance. Urinalysis reveals UTI. Blood and urine cultures are pending. Patient has already received 2 L normal saline bolus by ED provider; will provide an additional 1 L bolus for total of 3 followed by units IV fluids. He is empirically placed on IV Rocephin. He is admitted to the medical floor on continuous cardiac telemetry. (2) UTI (urinary tract infection) Qualifiers: Urinary tract infection type: site unspecified Hematuria presence: with hematuria Qualified Code(s): N39.0 - Urinary tract infection, site not specified; R31.9 - Hematuria, unspecified Is this a current diagnosis for this admission?: Yes Plan: Urinalysis reveals UTI. Blood and urine cultures are pending. CT abdomen and pelvis is benign; diverticulosis noted without diverticulitis. No renal calculi or hydronephrosis noted. He is empirically placed on IV Rocephin; will adjust as cultures result. Continue IV fluids. Encourage p.o. fluids. Antiemetics and analgesics as needed. (3) Obesity Qualifiers: Obesity classification: adult class 1 (BMI 30 - 34.9) Is this a current diagnosis for this admission?: Yes Plan: Lifestyle modification and dietary discretion is advised. (4) BPH (benign prostatic hyperplasia) Is this a current diagnosis for this admission?: Yes Plan: Patient reports history of BPH We will resume home medication regiment once reconciled. - Time Time Spent with patient: 35 or more minutes Medications reviewed and adjusted accordingly: Yes Anticipated discharge: Home Within: within 48 hours - Inpatient Certification Based on my medical assessment, after consideration of the patient's comorbidities, presenting symptoms, or acuity I expect that the services needed warrant INPATIENT care.: Yes I certify that my determination is in accordance with my understanding of Medicare's requirements for reasonable and necessary INPATIENT services [42 CFR 412.3e].: Yes Medical Necessity: Need For IV Fluids, Need For Continuous Telemetry Monitoring, Need for IV Antibiotics
[2018-12-09] MEDS: NORMAL SALINE 1000 ML 1,000 ML IV PRN ×2 (20:47→23:11)
[2018-12-09] MEDS: ZOLPIDEM TARTRATE 5 MG TABLET PO PRN (23:11)
[2018-12-09] MEDS: FAMOTIDINE 20 MG TABLET PO SCH (23:12)
[2018-12-09] MEDS: HEPARIN SOD (PORCINE) 5,000 UNIT/ML 1 ML VIAL SUBCUT SCH (23:12)
[2018-12-09] MEDS: ACETAMINOPHEN 325 MG TABLET PO PRN (23:12)
[2018-12-10 06:03] LABS: HEMATOCRIT 39.2 % (37.9-51.0); MEAN CORPUSCULAR HEMOGLOBIN 28.6 pg (27.0-33.4); MEAN CORPUSCULAR HGB CONC 34.2 g/dL (32.0-36.0); MEAN CORPUSCULAR VOLUME 84 fl (80-97); PLATELET COUNT 127 10^3/uL (150-450); RED BLOOD COUNT 4.68 10^6/uL (4.35-5.55); RED CELL DISTRIBUTION WIDTH 14.3 % (11.5-14.0); WHITE BLOOD COUNT 23.5 10^3/uL (4.0-10.5)
[2018-12-10] MEDS: HEPARIN SOD (PORCINE) 5,000 UNIT/ML 1 ML VIAL SUBCUT SCH ×3 (06:07→22:20)
[2018-12-10] MEDS: NORMAL SALINE 1000 ML 1,000 ML IV PRN ×2 (06:07→15:23)
[2018-12-10 06:16] LABS: HEMOGLOBIN 13.4 g/dL (13.5-17.0)
[2018-12-10 06:17] LABS: ANION GAP 10 (5-19); BLOOD UREA NITROGEN 22 mg/dL (7-20); CALCIUM 7.6 mg/dL (8.4-10.2); CARBON DIOXIDE 19 mmol/L (22-30); CHLORIDE 107 mmol/L (98-107); GLUCOSE 111 mg/dL (75-110); POTASSIUM 3.6 mmol/L (3.6-5.0); SODIUM 136.3 mmol/L (137-145)
[2018-12-10 06:36] LABS: ABSOLUTE LYMPHOCYTES# (MANUAL) 1.9 10^3/uL (0.5-4.7); ABSOLUTE MONOCYTES # (MANUAL) 0.9 10^3/uL (0.1-1.4); BAND NEUTROPHILS % (MANUAL) 3 % (3-5); BASOPHILS % (MANUAL) 0 % (0-2); EOSINOPHILS % (MANUAL) 0 % (0-6); LYMPHOCYTES % (MANUAL) 8 % (13-45); MONOCYTES % (MANUAL) 4 % (3-13); SEGMENTED NEUTROPHILS % (MAN) 85 % (42-78); TOTAL CELLS COUNTED 100
[2018-12-10 06:38] LABS: PLATELET CLUMPS PRESENT; PLATELET COMMENT DECREASED; RBC MORPHOLOGY COMMENT NORMO-CYTIC/CHROMIC; TOXIC GRANULATION SLIGHT
[2018-12-10] MEDS ORDERED: HYDRALAZINE HCL INJ/PF 20 MG/1 ML SDV IV ONE (09:30)
[2018-12-10] MEDS: FAMOTIDINE 20 MG TABLET PO SCH ×2 (09:41→22:19)
[2018-12-10] MEDS: DOCUSATE SODIUM 100 MG CAPSULE PO SCH (09:41)
[2018-12-10] MEDS ORDERED: CEFTRIAXONE 1 GM/D5W RTU 50 ML IV SCH (10:00)
[2018-12-10] MEDS ORDERED: TAMSULOSIN HCL 0.4 MG CAP.SR.24H PO ONE ×2 (10:28→13:30)
[2018-12-10] MEDS: CEFTRIAXONE SODIUM 1,000 MG in DEXTROSE 5%-WATER 50 ML IV SCH (13:00)
[2018-12-10] MEDS: TAMSULOSIN HCL 0.4 MG CAP.SR.24H PO SCH (18:55)
--- NOTE | 2018-12-10 18:56 | PDOC PROGRESS REPORT ---
Subjective Progress Note for:: 12/10/18 Subjective:: NAKIA AVINA is a 67 year old male with past medical history significant only for BPH who was admitted 12/09/18 for Sepsis secondary to UTI. Patient was seen on morning rounds. He is found resting in bed on room air. He reports significant suprapubic abdominal distention and pain. He reports that he has frequent voids but is unable to entirely empty bladder. He does complain of continued intermittent dysuria. He denies fever, chills, chest pain, palpitations, dyspnea, orthopnea, cough, nausea and vomiting. He has no other questions or concerns today. No concerns per nursing Reason For Visit: UTI,SEPSIS Physical Exam Vital Signs: Temp Pulse Resp BP Pulse Ox 97.7 F 94 22 H 150/100 H 96 12/10/18 07:17 12/10/18 07:17 12/10/18 07:17 12/10/18 08:23 12/10/18 07:17 Intake & Output 12/09/18 12/10/18 12/11/18 06:59 06:59 06:59 Intake Total 4517 Output Total 500 Balance 4017 Weight 91.9 kg General appearance: PRESENT: no acute distress, cooperative, disheveled, obese, well-developed, well-nourished Head exam: PRESENT: atraumatic, normocephalic Eye exam: PRESENT: conjunctiva pink, EOMI, PERRLA. ABSENT: scleral icterus Ear exam: PRESENT: normal external ear exam Mouth exam: PRESENT: moist, tongue midline Neck exam: ABSENT: carotid bruit, JVD, lymphadenopathy, thyromegaly Respiratory exam: PRESENT: clear to auscultation vikas, symmetrical, unlabored. ABSENT: rales, rhonchi, wheezes Cardiovascular exam: PRESENT: RRR, +S1, +S2. ABSENT: diastolic murmur, rubs, systolic murmur Pulses: PRESENT: normal dorsalis pedis pul Vascular exam: PRESENT: normal capillary refill GI/Abdominal exam: PRESENT: distended, firm, normal bowel sounds, tenderness. ABSENT: guarding, mass, organolmegaly, rebound Rectal exam: PRESENT: deferred Extremities exam: PRESENT: full ROM. ABSENT: calf tenderness, clubbing, pedal edema Neurological exam: PRESENT: alert, awake, oriented to person, oriented to place, oriented to time, oriented to situation, CN II-XII grossly intact. ABSENT: motor sensory deficit Psychiatric exam: PRESENT: appropriate affect, normal mood. ABSENT: homicidal ideation, suicidal ideation Skin exam: PRESENT: dry, intact, warm. ABSENT: cyanosis, rash Results Laboratory Results: 12/10/18 05:17 12/10/18 05:17 12/09/18 12/09/18 12/09/18 13:58 13:58 13:58 WBC 26.7 H RBC 5.77 H Hgb 16.5 Hct 48.6 MCV 84 MCH 28.6 MCHC 34.0 RDW 14.2 H Plt Count 189 Seg Neutrophils % Not Reportable Lymphocytes % Not Reportable Monocytes % Not Reportable Eosinophils % Not Reportable Basophils % Not Reportable Absolute Neutrophils Not Reportable Absolute Lymphocytes Not Reportable Absolute Monocytes Not Reportable Absolute Eosinophils Not Reportable Absolute Basophils Not Reportable VBG pH VBG pCO2 VBG HCO3 VBG Base Excess Sodium 134.1 L Potassium 4.0 Chloride 95 L Carbon Dioxide 22 Anion Gap 17 BUN 25 H Creatinine 1.64 H Est GFR ( Amer) 51 L Est GFR (Non-Af Amer) 42 L Glucose 129 H Lactic Acid 2.0 Calcium 9.0 Total Bilirubin 2.1 H AST 24 ALT 25 Alkaline Phosphatase 106 Total Protein 7.9 Albumin 4.4 Lipase Urine Color Urine Appearance Urine pH Ur Specific [place] Urine Protein Urine Glucose (UA) Urine Ketones Urine Blood Urine Nitrite Ur Leukocyte Esterase Urine WBC (Auto) Urine RBC (Auto) 12/09/18 12/09/18 12/09/18 13:58 14:46 16:17 WBC RBC Hgb Hct MCV MCH MCHC RDW Plt Count Seg Neutrophils % Lymphocytes % Monocytes % Eosinophils % Basophils % Absolute Neutrophils Absolute Lymphocytes Absolute Monocytes Absolute Eosinophils Absolute Basophils VBG pH 7.41 VBG pCO2 33.6 L VBG HCO3 21.0 VBG Base Excess -2.7 Sodium Potassium Chloride Carbon Dioxide Anion Gap BUN Creatinine Est GFR ( Amer) Est GFR (Non-Af Amer) Glucose Lactic Acid Calcium Total Bilirubin AST ALT Alkaline Phosphatase Total Protein Albumin Lipase 83.7 Urine Color YELLOW Urine Appearance CLOUDY Urine pH 6.0 Ur Specific [place] 1.036 Urine Protein 100 H Urine Glucose (UA) NEGATIVE Urine Ketones 20 H Urine Blood MODERATE H Urine Nitrite POSITIVE H Ur Leukocyte Esterase LARGE H Urine WBC (Auto) >182 Urine RBC (Auto) 33 12/10/18 12/10/18 05:17 05:17 WBC 23.5 H RBC 4.68 Hgb 13.4 L D Hct 39.2 MCV 84 MCH 28.6 MCHC 34.2 RDW 14.3 H Plt Count 127 L Seg Neutrophils % Not Reportable Lymphocytes % Not Reportable Monocytes % Not Reportable Eosinophils % Not Reportable Basophils % Not Reportable Absolute Neutrophils Not Reportable Absolute Lymphocytes Not Reportable Absolute Monocytes Not Reportable Absolute Eosinophils Not Reportable Absolute Basophils Not Reportable VBG pH VBG pCO2 VBG HCO3 VBG Base Excess Sodium 136.3 L Potassium 3.6 Chloride 107 Carbon Dioxide 19 L Anion Gap 10 BUN 22 H Creatinine 1.13 Est GFR ( Amer) > 60 Est GFR (Non-Af Amer) > 60 Glucose 111 H Lactic Acid Calcium 7.6 L Total Bilirubin AST ALT Alkaline Phosphatase Total Protein Albumin Lipase Urine Color Urine Appearance Urine pH Ur Specific [place] Urine Protein Urine Glucose (UA) Urine Ketones Urine Blood Urine Nitrite Ur Leukocyte Esterase Urine WBC (Auto) Urine RBC (Auto) 12/09/18 12/09/18 13:58 13:58 Creatine Kinase 262 H CK-MB (CK-2) 0.89 Troponin I < 0.012 Impressions: Chest X-Ray 12/09/18 13:37 IMPRESSION: NO ACUTE RADIOGRAPHIC FINDING IN THE CHEST. Abdomen/Pelvis CT 12/09/18 15:22 IMPRESSION: Diverticulosis without evidence of diverticulitis. Assessment and Plan - Diagnosis (1) Sepsis Is this a current diagnosis for this admission?: Yes Plan: Sepsis due to UTI, present on admission, evidenced by fever, tachycardia, tachypnea, leukocytosis with bandemia, acute kidney injury, and acutely ill appearance. Urinalysis reveals UTI. Blood cultures have no growth at 24 hours Urine cultures are pending. Patient has already received 2 L normal saline bolus by ED provider; will provide an additional 1 L bolus for total of 3 followed by gentle IV fluids. He is empirically placed on IV Rocephin. He is admitted to the medical floor on continuous cardiac telemetry. (2) UTI (urinary tract infection) Qualifiers: Urinary tract infection type: site unspecified Hematuria presence: with hematuria Qualified Code(s): N39.0 - Urinary tract infection, site not specified; R31.9 - Hematuria, unspecified Is this a current diagnosis for this admission?: Yes Plan: Urinalysis reveals UTI. Urine cultures are pending. CT abdomen and pelvis is benign; diverticulosis noted without diverticulitis. No renal calculi or hydronephrosis noted. He is empirically placed on IV Rocephin; will adjust as cultures result. Continue IV fluids. Encourage p.o. fluids. Antiemetics and analgesics as needed. (3) Obesity Qualifiers: Obesity classification: adult class 1 (BMI 30 - 34.9) Is this a current diagnosis for this admission?: Yes Plan: Lifestyle modification and dietary discretion is advised. (4) BPH (benign prostatic hyperplasia) Is this a current diagnosis for this admission?: Yes Plan: Patient reports history of BPH Start on Flomax. (5) Acute urinary retention Is this a current diagnosis for this admission?: Yes Plan: Patient complains of suprapubic abdominal discomfort with urinary urgency, freq uency, and overflow incontinence. Post void bladder scan >400ml Sawyer catheter placed with immediate 1 L output. Likely secondary to combination of BPH and acute cystitis. Continue Flomax as above. Continue treatment for UTI. - Time Time Spent with patient: 25-34 minutes Medications reviewed and adjusted accordingly: Yes Anticipated discharge: Home
[2018-12-10] MEDS: ZOLPIDEM TARTRATE 5 MG TABLET PO PRN (22:20)
[2018-12-11 05:00] LABS: HEMATOCRIT 36.3 % (37.9-51.0); HEMOGLOBIN 12.4 g/dL (13.5-17.0); MEAN CORPUSCULAR HEMOGLOBIN 28.7 pg (27.0-33.4); MEAN CORPUSCULAR HGB CONC 34.2 g/dL (32.0-36.0); MEAN CORPUSCULAR VOLUME 84 fl (80-97); PLATELET COUNT 144 10^3/uL (150-450); RED BLOOD COUNT 4.33 10^6/uL (4.35-5.55); RED CELL DISTRIBUTION WIDTH 14.2 % (11.5-14.0); WHITE BLOOD COUNT 12.2 10^3/uL (4.0-10.5)
[2018-12-11 05:28] LABS: ANION GAP 7 (5-19); BLOOD UREA NITROGEN 21 mg/dL (7-20); CALCIUM 7.6 mg/dL (8.4-10.2); CARBON DIOXIDE 22 mmol/L (22-30); CHLORIDE 107 mmol/L (98-107); GLUCOSE 97 mg/dL (75-110); POTASSIUM 3.2 mmol/L (3.6-5.0); SODIUM 136.2 mmol/L (137-145)
[2018-12-11] MEDS: HEPARIN SOD (PORCINE) 5,000 UNIT/ML 1 ML VIAL SUBCUT SCH ×3 (05:29→21:34)
[2018-12-11] MEDS: NORMAL SALINE 1000 ML 1,000 ML IV PRN ×2 (05:38→15:42)
[2018-12-11] MEDS ORDERED: ZOLPIDEM TARTRATE 5 MG TABLET PO PRN (08:06)
[2018-12-11] MEDS: ACETAMINOPHEN 325 MG TABLET PO PRN (08:28)
[2018-12-11] MEDS: DOCUSATE SODIUM 100 MG CAPSULE PO SCH (09:20)
[2018-12-11] MEDS: FAMOTIDINE 20 MG TABLET PO SCH ×2 (09:23→21:29)
[2018-12-11] MEDS: POTASSIUM CHLORIDE 10 MEQ CAPSULE.ER PO SCH (09:23)
[2018-12-11] MEDS: CETIRIZINE 10 MG TABLET PO SCH (09:23)
[2018-12-11] MEDS: AMLODIPINE BESYLATE 5 MG TABLET PO SCH (09:24)
[2018-12-11] MEDS: CEFTRIAXONE SODIUM 1,000 MG in DEXTROSE 5%-WATER 50 ML IV SCH (13:00)
[2018-12-11] MEDS: TAMSULOSIN HCL 0.4 MG CAP.SR.24H PO SCH (17:09)
--- NOTE | 2018-12-11 18:25 | PDOC PROGRESS REPORT ---
Subjective Progress Note for:: 12/11/18 Subjective:: NAKIA AVINA is a 67 year old male with past medical history significant only for BPH who was admitted 12/09/18 for Sepsis secondary to UTI. Patient was seen on morning rounds. He is found resting in bed on room air. He reports he is feeling much better today. Looking forward to discharge home in near future. Reports good appetite. He denies fever, chills, chest pain, palpitations, dyspnea, orthopnea, cough, abdominal pain, nausea and vomiting. He has no questions or concerns today. No concerns per nursing Reason For Visit: UTI,SEPSIS Physical Exam Vital Signs: Temp Pulse Resp BP Pulse Ox 97.3 F 64 18 115/72 96 12/11/18 16:00 12/11/18 16:00 12/11/18 16:00 12/11/18 16:00 12/11/18 16:00 Intake & Output 12/10/18 12/11/18 12/12/18 06:59 06:59 06:59 Intake Total 4517 3050 1405 Output Total 500 3325 375 Balance 4017 -275 1030 Weight 91.9 kg 93.1 kg General appearance: PRESENT: no acute distress, cooperative - pleasant, well- developed, well-nourished - overweight Head exam: PRESENT: atraumatic, normocephalic Eye exam: PRESENT: conjunctiva pink, EOMI, PERRLA. ABSENT: scleral icterus Ear exam: PRESENT: normal external ear exam Mouth exam: PRESENT: moist, tongue midline Neck exam: ABSENT: carotid bruit, JVD, lymphadenopathy, thyromegaly Respiratory exam: PRESENT: clear to auscultation vikas, symmetrical, unlabored. ABSENT: rales, rhonchi, wheezes Cardiovascular exam: PRESENT: RRR, +S1, +S2. ABSENT: diastolic murmur, rubs, systolic murmur Pulses: PRESENT: normal dorsalis pedis pul Vascular exam: PRESENT: normal capillary refill GI/Abdominal exam: PRESENT: normal bowel sounds, soft. ABSENT: distended, guarding, mass, organolmegaly, rebound, tenderness Rectal exam: PRESENT: deferred Gentrourinary exam: PRESENT: indwelling catheter Extremities exam: PRESENT: full ROM. ABSENT: calf tenderness, clubbing, pedal edema Musculoskeletal exam: PRESENT: ambulatory Neurological exam: PRESENT: alert, awake, oriented to person, oriented to place, oriented to time, oriented to situation, CN II-XII grossly intact. ABSENT: motor sensory deficit Psychiatric exam: PRESENT: appropriate affect, normal mood. ABSENT: homicidal ideation, suicidal ideation Skin exam: PRESENT: dry, intact, warm. ABSENT: cyanosis, rash Results Laboratory Results: 12/11/18 04:00 12/11/18 04:00 12/11/18 12/11/18 04:00 04:00 WBC 12.2 H RBC 4.33 L Hgb 12.4 L Hct 36.3 L MCV 84 MCH 28.7 MCHC 34.2 RDW 14.2 H Plt Count 144 L Sodium 136.2 L Potassium 3.2 L Chloride 107 Carbon Dioxide 22 Anion Gap 7 BUN 21 H Creatinine 1.00 Est GFR ( Amer) > 60 Est GFR (Non-Af Amer) > 60 Glucose 97 Calcium 7.6 L 12/09/18 16:17 Clean Catch Midstream Urine Culture - Final Mixed Urogenital Ginger 12/09/18 12/09/18 13:58 13:58 Creatine Kinase 262 H CK-MB (CK-2) 0.89 Troponin I < 0.012 Impressions: Chest X-Ray 12/09/18 13:37 IMPRESSION: NO ACUTE RADIOGRAPHIC FINDING IN THE CHEST. Abdomen/Pelvis CT 12/09/18 15:22 IMPRESSION: Diverticulosis without evidence of diverticulitis. Assessment and Plan - Diagnosis (1) Sepsis Is this a current diagnosis for this admission?: Yes Plan: Improved; afebrile, tachycardia and tachypnea have resolved, leukocytosis trending down, creatinine at baseline. Sepsis due to UTI, present on admission, evidenced by fever, tachycardia, tachypnea, leukocytosis with bandemia, acute kidney injury, and acutely ill appearance. Urinalysis reveals UTI. Blood cultures have no growth at 48 hours Urine cultures shows mixed urogenital ginger. Patient has already received 2 L normal saline bolus by ED provider; will provide an additional 1 L bolus for total of 3 followed by gentle IV fluids. He is empirically placed on IV Rocephin; day #2. He is admitted to the medical floor on continuous cardiac telemetry. (2) UTI (urinary tract infection) Qualifiers: Urinary tract infection type: site unspecified Hematuria presence: with hematuria Qualified Code(s): N39.0 - Urinary tract infection, site not specified; R31.9 - Hematuria, unspecified Is this a current diagnosis for this admission?: Yes Plan: Urinalysis reveals UTI. Urine cultures shows mixed urogenital ginger. Are pending. CT abdomen and pelvis is benign; diverticulosis noted without diverticulitis. No renal calculi or hydronephrosis noted. He is empirically placed on IV Rocephin; day #2. We will plan on transitioning to p.o. Cipro tomorrow. As the patient has BPH and developed acute urinary retention while admitted requiring Sawyer placement, will provide prolonged course (21 days) and recommend urology follow-up. Continue IV fluids. Encourage p.o. fluids. Antiemetics and analgesics as needed. (3) Obesity Qualifiers: Obesity classification: adult class 1 (BMI 30 - 34.9) Is this a current diagnosis for this admission?: Yes Plan: Lifestyle modification and dietary discretion is advised. (4) BPH (benign prostatic hyperplasia) Is this a current diagnosis for this admission?: Yes Plan: Patient reports history of BPH Start on Flomax. Recommend urology follow-up. (5) Acute urinary retention Is this a current diagnosis for this admission?: Yes Plan: Patient complains of suprapubic abdominal discomfort with urinary urgency, frequency, and overflow incontinence. Post void bladder scan >400ml Sawyer catheter placed with immediate 1 L output. Likely secondary to combination of BPH and acute cystitis. Continue Flomax as above. Continue treatment for UTI. (6) Hypokalemia Is this a current diagnosis for this admission?: Yes Plan: P.o. potassium today. Repeat chemistry in the morning. - Time Time Spent with patient: 15-24 minutes Medications reviewed and adjusted accordingly: Yes Anticipated discharge: Home Within: within 24 hours
[2018-12-11] MEDS: ZOLPIDEM TARTRATE 5 MG TABLET PO PRN (21:29)
[2018-12-12 05:20] LABS: HEMATOCRIT 37.6 % (37.9-51.0); HEMOGLOBIN 12.8 g/dL (13.5-17.0); MEAN CORPUSCULAR HEMOGLOBIN 28.6 pg (27.0-33.4); MEAN CORPUSCULAR HGB CONC 34.1 g/dL (32.0-36.0); MEAN CORPUSCULAR VOLUME 84 fl (80-97); PLATELET COUNT 152 10^3/uL (150-450); RED BLOOD COUNT 4.47 10^6/uL (4.35-5.55); RED CELL DISTRIBUTION WIDTH 14.1 % (11.5-14.0); WHITE BLOOD COUNT 6.9 10^3/uL (4.0-10.5)
[2018-12-12 05:43] LABS: ANION GAP 6 (5-19); BLOOD UREA NITROGEN 20 mg/dL (7-20); CALCIUM 7.6 mg/dL (8.4-10.2); CARBON DIOXIDE 22 mmol/L (22-30); CHLORIDE 108 mmol/L (98-107); GLUCOSE 100 mg/dL (75-110); SODIUM 135.9 mmol/L (137-145)
[2018-12-12 05:45] LABS: POTASSIUM 3.6 mmol/L (3.6-5.0)
[2018-12-12] MEDS: NORMAL SALINE 1000 ML 1,000 ML IV PRN (06:20)
[2018-12-12] MEDS: HEPARIN SOD (PORCINE) 5,000 UNIT/ML 1 ML VIAL SUBCUT SCH ×2 (06:21→13:47)
[2018-12-12] MEDS: CETIRIZINE 10 MG TABLET PO SCH (10:54)
[2018-12-12] MEDS: AMLODIPINE BESYLATE 5 MG TABLET PO SCH (10:54)
[2018-12-12] MEDS: FAMOTIDINE 20 MG TABLET PO SCH (10:54)
[2018-12-12] MEDS: POTASSIUM CHLORIDE 10 MEQ CAPSULE.ER PO SCH (10:54)
[2018-12-12] MEDS: DOCUSATE SODIUM 100 MG CAPSULE PO SCH (10:54)
[2018-12-12] MEDS: CEFTRIAXONE SODIUM 1,000 MG in DEXTROSE 5%-WATER 50 ML IV SCH (13:43)
[2018-12-12] MEDS ORDERED: PHENAZOPYRIDINE HCL 200 MG TABLET PO SCH (14:00)
[2018-12-12 17:13] VITALS: BP 150/83
[2018-12-12] MEDS: TAMSULOSIN HCL 0.4 MG CAP.SR.24H PO SCH (17:39)
--- NOTE | 2018-12-12 19:11 | PDOC DISCHARGE SUMMARY ---
General - Admit/Disc Date/PCP Admission Date/Primary Care Provider: 12/09/18 17:51 [facility] Discharge Date: 12/12/18 - Discharge Diagnosis (1) Sepsis Is this a current diagnosis for this admission?: Yes Summary: Resolved. Leukocytosis, fever, tachycardia, tachypnea have resolved, creatinine at baseline. Sepsis due to UTI, present on admission, evidenced by fever, tachycardia, ta chypnea, leukocytosis with bandemia, acute kidney injury, and acutely ill appearance. Urinalysis reveals UTI. Blood cultures have no growth at 72 hours Urine cultures shows mixed urogenital ginger. Received aggressive IVF resuscitation. He was empirically placed on IV Rocephin for treatment of UTI; received 3 days of therapy. He is discharged with instructions to resume the Bactrim as prescribed by his urgent care provider the day of admission (patient shows me a full bottle; 10 days of therapy). (2) UTI (urinary tract infection) Is this a current diagnosis for this admission?: Yes Summary: rinalysis reveals UTI. Urine cultures shows mixed urogenital ginger. Are pending. CT abdomen and pelvis is benign; diverticulosis noted without diverticulitis. No renal calculi or hydronephrosis noted. He is empirically placed on IV Rocephin; received 3 days. Had planned to transition to p.o. Cipro; however, patient shows me a full bottle of Bactrim Ds (BID x 10 days) filled the day he was admitted. He is instructed to start this prescription and complete course of therapy as prescribed. He is provided a prescription for pyridium TID prn. Recommend urology follow-up secondary to development of urinary retention upon completion of antibiotic course. (3) Obesity Is this a current diagnosis for this admission?: Yes Summary: Lifestyle modification and dietary discretion is advised. (4) BPH (benign prostatic hyperplasia) Is this a current diagnosis for this admission?: Yes Summary: Patient reports history of BPH Continue on Flomax (home medication), start Proscar. Recommend urology follow-up. (5) Acute urinary retention Is this a current diagnosis for this admission?: Yes Summary: Likely secondary to combination of BPH and acute cystitis. Patient complained of suprapubic abdominal discomfort with urinary urgency, frequency, and overflow incontinence. Post void bladder scan >400ml; Woods catheter placed with immediate 1 L output. Patient was continued on his home medication, Flomax. Started on pyridium Woods catheter was removed early this morning. This afternoon, patient reported sensation of urinary hesitency and urinary retention. Post-void bladder scan again showed >400 ml. Woods cather placed w/ 550 mL urine output. He is discharged with woods/leg bag. He is started on Proscar to continue in addition to flomax. Recommend follow up with PCP and/or Urology following completion of antibiotic therapy for woods removal. (6) Hypokalemia Is this a current diagnosis for this admission?: Yes Summary: Resolved. - Additional Information Resuscitation Status: Full Code Discharge Diet: Regular Discharge Activity: Activity As Tolerated, Balance Activity w/Rest Prescriptions: Finasteride [Proscar] 5 mg PO DAILY #30 tablet Ondansetron [Zofran Odt 4 mg Tablet] 1 - 2 tab PO Q4HP PRN #10 tab.rapdis PRN Reason: Phenazopyridine HCl [Pyridium 200 mg Tablet] 200 mg PO Q8 #12 tablet Home Medications: Cetirizine HCl [Zyrtec 10 mg Tablet] 10 mg PO DAILY 12/10/18 Tamsulosin HCl [Flomax 0.4 mg Cap.sr] 0.4 mg PO DAILY 12/10/18 Zolpidem Tartrate [Ambien 5 mg Tablet] 10 mg PO HSP PRN 12/10/18 Acetaminophen [Tylenol 325 mg Tablet] 650 mg PO Q4HP PRN tablet 12/12/18 Amlodipine Besylate [Norvasc 5 mg Tablet] 5 mg PO DAILY #0 tablet 12/12/18 Docusate Sodium [Colace 100 mg Capsule] 100 mg PO DAILY capsule 12/12/18 Finasteride [Proscar] 5 mg PO DAILY #30 tablet 12/12/18 Ondansetron [Zofran Odt 4 mg Tablet] 1 - 2 tab PO Q4HP PRN #10 tab.rapdis 12/12/18 Phenazopyridine HCl [Pyridium 200 mg Tablet] 200 mg PO Q8 #12 tablet 12/12/18 Potassium Chloride [Klor-Con 10 Meq Capsule ER] 40 meq PO DAILY capsule.er 12/12/18 History of Present Illness History of Present Illness: NAKIA AVINA is a 67 year old male with past medical history significant only for BPH who presented today with a complaint of 3 days of dysuria, urinary frequency, fatigue and chills, and generalized malaise. TMax at home 101.1 Evaluation in the emergency department reveals tachycardia, tachypnea, leukocytosis (WBCs 26.7), with bandemia, LANE (creatinine 1.64 with baseline of 1.22) urinalysis revealing UTI. Chest x-ray, EKG and CT of the abdomen and pelvis are benign. He is referred to the hospitalist service for admission and management of urinary tract infection resulting in sepsis. Physical Exam Vital Signs: Temp Pulse Resp BP Pulse Ox 98.0 F 68 19 150/83 H 96 12/12/18 18:18 12/12/18 18:18 12/12/18 18:18 12/12/18 18:18 12/12/18 18:18 Intake & Output 12/11/18 12/12/18 12/13/18 06:59 06:59 06:59 Intake Total 3050 3263 970 Output Total 3325 2100 850 Balance -275 1163 120 Weight 93.1 kg 95 kg General appearance: PRESENT: no acute distress, cooperative, obese, well- developed, well-nourished Head exam: PRESENT: atraumatic, normocephalic Eye exam: PRESENT: conjunctiva pink, EOMI, PERRLA. ABSENT: scleral icterus Ear exam: PRESENT: normal external ear exam Mouth exam: PRESENT: moist, tongue midline Neck exam: ABSENT: carotid bruit, JVD, lymphadenopathy, thyromegaly Respiratory exam: PRESENT: clear to auscultation vikas, symmetrical, unlabored. ABSENT: rales, rhonchi, wheezes Cardiovascular exam: PRESENT: RRR, +S1, +S2. ABSENT: diastolic murmur, rubs, systolic murmur Pulses: PRESENT: normal dorsalis pedis pul Vascular exam: PRESENT: normal capillary refill GI/Abdominal exam: PRESENT: normal bowel sounds, soft. ABSENT: distended, guarding, mass, organolmegaly, rebound, tenderness Rectal exam: PRESENT: deferred Gentrourinary exam: PRESENT: indwelling catheter Extremities exam: PRESENT: full ROM. ABSENT: calf tenderness, clubbing, pedal edema Neurological exam: PRESENT: alert, awake, oriented to person, oriented to place, oriented to time, oriented to situation, CN II-XII grossly intact. ABSENT: motor sensory deficit Psychiatric exam: PRESENT: appropriate affect, normal mood. ABSENT: homicidal ideation, suicidal ideation Skin exam: PRESENT: dry, intact, warm. ABSENT: cyanosis, rash Results Laboratory Results: 12/12/18 04:39 12/12/18 04:39 12/12/18 12/12/18 04:39 04:39 WBC 6.9 RBC 4.47 Hgb 12.8 L Hct 37.6 L MCV 84 MCH 28.6 MCHC 34.1 RDW 14.1 H Plt Count 152 Sodium 135.9 L Potassium 3.6 Chloride 108 H Carbon Dioxide 22 Anion Gap 6 BUN 20 Creatinine 0.97 Est GFR ( Amer) > 60 Est GFR (Non-Af Amer) > 60 Glucose 100 Calcium 7.6 L 12/09/18 12/09/18 13:58 13:58 Creatine Kinase 262 H CK-MB (CK-2) 0.89 Troponin I < 0.012 Impressions: Chest X-Ray 12/09/18 13:37 IMPRESSION: NO ACUTE RADIOGRAPHIC FINDING IN THE CHEST. Abdomen/Pelvis CT 12/09/18 15:22 IMPRESSION: Diverticulosis without evidence of diverticulitis. Qualifiers - * PATIENT BEING DISCHARGED WITH ANY OF THE FOLLOWING DIAGNOSIS: No Acute Heart Failure - Is this a Heart Failure Patient?: No Plan Discharge Plan: Discharge to home with self care. Leave woods catheter in place. Start Bactrim that was prescribed by Urgent Care day of admission; complete full 10 day course. continue both flomax and proscar for treatment of BPH w/ acute urinary retention. Recommend Urology follow up for woods removal upon completing antibiotic therapy. Return to the emergency department as needed for concerning symptoms. Time Spent: Greater than 30 Minutes
== END 2018-12-12 19:30 | disposition home or self-care (01) | DRG 872 ==
LOC: ER 12:55 → EH 17:51 → 4N 21:32
PROVIDERS: ADMIT Hospitalist; ATTEND Hospitalist
DX: A41.9 Sepsis, unspecified organism (principal); N39.0 Urinary tract infection, site not specified; N17.9 Acute kidney failure, unspecified; R31.9 Hematuria, unspecified; N40.1 Benign prostatic hyperplasia with lower urinary tract symptoms; E66.9 Obesity, unspecified; R33.8 Other retention of urine; E87.6 Hypokalemia; K57.90 Diverticulosis of intestine, part unspecified, without perforation or abscess without bleeding; Z87.891 Personal history of nicotine dependence; Z68.32 Body mass index [BMI] 32.0-32.9, adult
CPT/HCPCS: 36415; 71045; 74177; 80048; 81001; 82550; 82553; 82803; 83605; 83690; 84484; 85025; 85027; 85610; 85730; 87040; 87070; 87086; 87493; 93005; 93010; J0360; J0696; J0744; J1644; J2405; J3010; J3490; J7030; J7060

== ENCOUNTER 2018-12-23 18:30 | Emergency (ER) | payer OTHER, MEDICARE ==
[2018-12-23 18:35] VITALS: BP 146/90
--- NOTE | 2018-12-23 20:17 | ER Document Report ---
HPI - HPI Time Seen by Provider: 12/23/18 19:19 Pain Level: 0 Notes: 72-year-old male patient presented to the emergency department with request to have his Sawyer catheter removed. Patient reports Sawyer was placed approximately 1 week ago while he was an inpatient at [facility]. He states it was placed for acute urinary retention. He states he has been unable to get an appointment with a urologist. He states he has been given the run around by the [facility] and they have also refused to remove the catheter. Patient denies any acute symptoms today. Past Medical History - General Information source: Patient - Social History Smoking Status: Never Smoker Frequency of alcohol use: None Drug Abuse: None Family History: Reviewed & Not Pertinent - Past Medical History Cardiac Medical History: Denies: Hx Hypertension Endocrine Medical History: Denies: Hx Diabetes Mellitus Type 1, Hx Diabetes Mellitus Type 2 Renal/ Medical History: Reports: Hx Benign Prostatic Hyperplasia. Denies: Hx Kidney Stones, Hx Peritoneal Dialysis Past Surgical History: Reports: Hx Orthopedic Surgery - left elbow - Immunizations Hx Diphtheria, Pertussis, Tetanus Vaccination: No Vertical Provider Document - CONSTITUTIONAL Notes: PHYSICAL EXAMINATION: GENERAL: Well-appearing, well-nourished and in no acute distress. HEAD: Atraumatic, normocephalic. EYES: Pupils equal round extraocular movements intact, conjunctiva are normal. ENT: Nares patent NECK: Normal range of motion LUNGS: No respiratory distress : Sawyer catheter in place with leg bag. Musculoskeletal: Normal range of motion NEUROLOGICAL: Normal speech, normal gait. PSYCH: Normal mood, normal affect. SKIN: Warm, Dry, normal turgor, no rashes or lesions noted. - INFECTION CONTROL TRAVEL OUTSIDE OF THE [place] IN LAST 30 DAYS: No Course - Re-evaluation Re-evalutation: Attending physician, Dr. Appiah came to bedside. We discussed with the patient the best course of action would be to do bladder training over the next 24 to 48 hours. We advised the patient to clamp the catheter bag for 4 to 6 hours at a time and then unclamped to release the urine. We explained to him that this would help retrain the bladder to expand. Patient was agreeable to this plan. We did let patient know that we could take out the Sawyer catheter right now but we felt that most likely he would end up back in the emergency department with acute urinary retention again. Patient again is agreeable with returning in 24 to 48 hours for Sawyer removal. I encouraged him to continue to try to get follow-up with urology as this is very important to get to the base of the problem. The patient's emergency department workup and current diagnosis were explained to the patient and or family. Follow-up instructions were provided. Medications if prescribed were discussed. Instructions for when to return to the emergency department including specific worrisome symptoms were discussed with the patient and/or family. - Vital Signs Vital signs: Temp Pulse Resp BP Pulse Ox 97.7 F 87 20 146/90 H 96 12/23/18 18:34 12/23/18 18:34 12/23/18 18:34 12/23/18 18:34 12/23/18 18:34 Discharge - Discharge Clinical Impression: Sawyer catheter in place Condition: Stable Disposition: HOME, SELF-CARE Additional Instructions: Please keep the Sawyer catheter in place for the next 24 hours. As we discussed please clamp a Sawyer catheter for 4 to 6 hours at a time and then release the urine into the bag. Next clamped the catheter and then released again after another 4 to 6 hours. Please return to the emergency department tomorrow evening or Friday morning. The mornings are usually not as busy, and then we will remove your catheter at that time. [facility] [[facility] - Follow up as needed
== END 2018-12-23 20:30 | disposition home or self-care (01) ==
LOC: ER 18:30
DX: Z46.6 Encounter for fitting and adjustment of urinary device (principal); R33.9 Retention of urine, unspecified
CPT/HCPCS: 99283

== ENCOUNTER 2018-12-24 19:01 | Emergency (ER) | payer OTHER, MEDICARE ==
--- NOTE | 2018-12-24 19:58 | ER Document Report ---
HPI - HPI Time Seen by Provider: 12/24/18 19:31 Pain Level: Denies Notes: Patient is a 68-year-old male who presents for possible removal of his urinary catheter. Patient states that he had a urinary infection which resulted in him being admitted to the hospital near the end of November. He did have a trial of removal of catheter prior to discharge, but had to have it placed back in. Patient was then to follow-up with his family doctor which he did, but his family doctor stated that they could not do anything with it and he needed to see a urologist. His family doctor was able to get in touch with a urologist through the [place] [facility] and they said that it is a liability if they touch it so they will not remove it. They told him that he needs it removed by someone in [place]. Patient states that he is here because he is not sure what else to do at this point. He is otherwise eating and drinking without difficulty. He is having normal bowel movements. He has not had any complications with a urinary catheter. Denies drug allergies. Denies any headache, fever, URI, sore throat, chest pain, palpitations, syncope, cough, shortness of breath, wheeze, dyspnea, abdominal pain, nausea/vomiting/diarrhea, back pain, or rash. - ROS Systems Reviewed and Negative: Yes All other systems reviewed and negative Past Medical History - Social History Smoking Status: Unknown if Ever Smoked Family History: Reviewed & Not Pertinent - Past Medical History Cardiac Medical History: Denies: Hx Hypertension Endocrine Medical History: Denies: Hx Diabetes Mellitus Type 1, Hx Diabetes Mellitus Type 2 Renal/ Medical History: Reports: Hx Benign Prostatic Hyperplasia. Denies: Hx Kidney Stones, Hx Peritoneal Dialysis Past Surgical History: Reports: Hx Orthopedic Surgery - left elbow - Immunizations Hx Diphtheria, Pertussis, Tetanus Vaccination: No Vertical Provider Document - CONSTITUTIONAL Agree With Documented VS: Yes Notes: PHYSICAL EXAMINATION: GENERAL: Well-appearing, well-nourished and in no acute distress. LUNGS: Breath sounds clear to auscultation bilaterally and equal. No wheezes rales or rhonchi. HEART: Regular rate and rhythm without murmurs, rubs, gallops. ABDOMEN: Soft, nontender, nondistended abdomen. No guarding, no rebound. Normal bowel sounds present. No CVA tenderness bilaterally. Musculoskeletal: FROM to passive/active. Strength 5+/5. Extremities: No cyanosis, clubbing, or edema b/l. Peripheral pulses 2+. Capillary refill less than 3 seconds. NEUROLOGICAL: normal speech, normal gait. PSYCH: Normal mood, normal affect. SKIN: Warm, Dry, normal turgor, no rashes or lesions noted. - INFECTION CONTROL TRAVEL OUTSIDE OF THE [place].S[place] IN LAST 30 DAYS: No Course - Re-evaluation Re-evalutation: 12/24/18 Patient is an afebrile, well-hydrated, 68-year-old male who presents for worried well visit regarding her urinary catheter, possible UTI. Vitals are acceptable without significant tachycardia, tachypnea, or hypoxia. PE is otherwise unremarkable. See UA with UC pending. Based on recent events, I will start him on keflex. Patient's abdomen is soft and nontender. He is nontoxic-appearing and is tolerating p.o. without difficulty. I did review 3 options with the patient regarding his urinary catheter. The first being removal here with observation to make sure that he can urinate prior to discharge. The other being removing the catheter in him observing at home and if he cannot urinate he needs to return immediately, and the third being but I give him information for urology clinic here in [place] outside of the [place] [facility] that he may call tomorrow. I reviewed with the patient that I do have a concern based on his recent significant urinary infection and his BPH that he may end up retaining urine again and leading to another infection. I reviewed that it would be best if he had a consult with a urologist prior to removal so that he may have continuation of care. Patient states that he would prefer to leave it in as he is not having any complications with the catheter and would like to call urology tomorrow. No further work-up warranted. Patient to return to the ED with any other worsening/concerning symptoms. Patient is in agreement. - Vital Signs Vital signs: Temp Pulse Resp BP Pulse Ox 97.7 F 84 17 145/90 H 97 12/24/18 19:10 12/24/18 19:10 12/24/18 19:10 12/24/18 19:10 12/24/18 19:10 Discharge - Discharge Clinical Impression: Acute UTI (urinary tract infection), Urinary catheter in place Condition: Stable Disposition: HOME, SELF-CARE Instructions: Cephalexin ([facility]) Additional Instructions: Push fluids (i.e. water) Proper hygenic technique Keep the skin clean Tylenol/ibuprofen as needed Take medications as directed F/u with your PCM in 3-5 days for a recheck Call urology tomorrow to schedule an appointment for further evaluation and management* Return to the ED with any worsening symptoms and/or development of fever, headache, chest pain, palpitations, syncope, shortness of breath, trouble breathing, abdominal pain, n/v/d, blood in stool/urine, loss of control of bowel/bladder, urinary retention, or other worsening symptoms that are conc erning to you. Prescriptions: Cephalexin Monohydrate [Keflex 500 mg Capsule] 500 mg PO TID #21 capsule Forms: Elevated Blood Pressure [facility]] - Follow up as needed [facility] [Provider Group] - Follow up tomorrow
[2018-12-24 20:25] LABS: APPEARANCE,URINE CLEAR; BILIRUBIN,URINE NEGATIVE (NEGATIVE); COLOR,URINE YELLOW; GLUCOSE, URINE NEGATIVE (NEGATIVE); KETONES,URINE NEGATIVE (NEGATIVE); LEUKOCYTE ESTERASE,URINE MODERATE (NEGATIVE); NITRITE,URINE NEGATIVE (NEGATIVE); PROTEIN,URINE NEGATIVE (NEGATIVE); URINE SPECIFIC GRAVITY 1.014; UROBILINOGEN,URINE NEGATIVE mg/dL (<2.0)
[2018-12-24] MEDS ORDERED: CEPHALEXIN 500 MG CAPSULE PO ONE (20:49)
[2018-12-24 20:57] VITALS: BP 139/86
== END 2018-12-24 20:57 | disposition home or self-care (01) ==
LOC: ER 19:01
DX: T83.511A Infection and inflammatory reaction due to indwelling urethral catheter, initial encounter (principal); N39.0 Urinary tract infection, site not specified; X58.XXXA Exposure to other specified factors, initial encounter
CPT/HCPCS: 81001; 87086; 99283

== ENCOUNTER 2019-04-13 13:33 | Emergency (ER) | payer OTHER, MEDICARE ==
[2019-04-13 13:38] VITALS: BP 146/89
--- NOTE | 2019-04-13 13:57 | ER Document Report ---
ED Medical Screen (RME) - General Chief Complaint: Knee Pain Stated Complaint: ABNORMAL LABS Time Seen by Provider: 04/13/19 13:51 Primary Care Provider: AKIN,TOM [Primary Care Provider] - Follow up as needed Mode of Arrival: Ambulatory Information source: Patient Notes: This 68-year-old male presents emergency department with complaints of right leg pain and swelling. [facility] Patient just had labs done. He has them with him. Denies other complaints such as fever vomiting diarrhea. Reports he just finished amoxicillin for a sore throat. Denies history of PE or DVT. Reports he was just on a cruise last week. Reports he was admitted to the hospital at the end of November for possible sepsis. I have greeted and performed a rapid initial assessment of this patient. A comprehensive ED assessment and evaluation of the patient, analysis of test results and completion of the medical decision making process will be conducted by additional ED providers. Dictation of this chart was performed using voice recognition software; therefore, there may be some unintended grammatical errors. TRAVEL OUTSIDE OF THE U.S[place] IN LAST 30 DAYS: No - Related Data Allergies/Adverse Reactions: No Known Allergies Allergy (Verified 12/23/18 18:31) Past Medical History - Social History Chew tobacco use (# tins/day): No Frequency of alcohol use: None Drug Abuse: None - Past Medical History Cardiac Medical History: Denies: Hx Hypertension Endocrine Medical History: Denies: Hx Diabetes Mellitus Type 1, Hx Diabetes Mellitus Type 2 Renal/ Medical History: Reports: Hx Benign Prostatic Hyperplasia. Denies: Hx Kidney Stones, Hx Peritoneal Dialysis Past Surgical History: Reports: Hx Orthopedic Surgery - left elbow - Immunizations Hx Diphtheria, Pertussis, Tetanus Vaccination: No Physical Exam - Vital signs Vitals: Pulse Resp BP Pulse Ox 64 16 146/89 H 98 04/13/19 13:37 04/13/19 13:37 04/13/19 13:37 04/13/19 13:37 Course - Vital Signs Vital signs: Temp Pulse Resp BP Pulse Ox 64 16 146/89 H 98 04/13/19 13:37 04/13/19 13:37 04/13/19 13:37 04/13/19 13:37 Doctor's Discharge - Discharge [facility]errals: [facility] - Follow up as needed
--- NOTE | 2019-04-13 15:17 | ER Document Report ---
ED General - General Chief Complaint: Knee Pain Stated Complaint: ABNORMAL LABS Time Seen by Provider: 04/13/19 13:51 Primary Care Provider: AKIN,TOM [Primary Care Provider] - Follow up as needed Mode of Arrival: Ambulatory TRAVEL OUTSIDE OF THE [place].S[place] IN LAST 30 DAYS: No - HPI Onset: Last week Onset/Duration: Gradual Quality of pain: Achy Severity: Moderate Context: 68 year old male arrives with right leg pain referred from [place] for this. He has had pain posterior thigh and upper calf for about 2 weeks. It has felt a bit unusal for several weeks since admission for UTI back in December. Exacerbated by: Denies Relieved by: Denies - Related Data Allergies/Adverse Reactions: No Known Allergies Allergy (Verified 12/23/18 18:31) Past Medical History - General Information source: Patient - Social History Smoking Status: Never Smoker Chew tobacco use (# tins/day): No Frequency of alcohol use: None Drug Abuse: None Family History: Reviewed & Not Pertinent Patient has suicidal ideation: No Patient has homicidal ideation: No - Past Medical History Cardiac Medical History: Denies: Hx Hypertension Endocrine Medical History: Denies: Hx Diabetes Mellitus Type 1, Hx Diabetes Mellitus Type 2 Renal/ Medical History: Reports: Hx Benign Prostatic Hyperplasia. Denies: Hx Kidney Stones, Hx Peritoneal Dialysis Past Surgical History: Reports: Hx Orthopedic Surgery - left elbow - Immunizations Hx Diphtheria, Pertussis, Tetanus Vaccination: No Review of Systems - Review of Systems Constitutional: No symptoms reported EENT: No symptoms reported Cardiovascular: No symptoms reported Respiratory: No symptoms reported Gastrointestinal: No symptoms reported Genitourinary: No symptoms reported Male Genitourinary: No symptoms reported Musculoskeletal: See HPI Skin: No symptoms reported Hematologic/Lymphatic: No symptoms reported Neurological/Psychological: No symptoms reported Physical Exam - Vital signs Vitals: Pulse Resp BP Pulse Ox 64 16 146/89 H 98 04/13/19 13:37 04/13/19 13:37 04/13/19 13:37 04/13/19 13:37 Interpretation: Normal - General General appearance: Appears well, Alert - HEENT Head: Normocephalic, Atraumatic Eyes: Normal Pupils: PERRL - Respiratory Respiratory status: No respiratory distress Chest status: Nontender Breath sounds: Normal Chest palpation: Normal - Cardiovascular Rhythm: Regular Heart sounds: Normal auscultation Murmur: No - Abdominal Inspection: Normal Distension: No distension Bowel sounds: Normal Tenderness: Nontender Organomegaly: No organomegaly - Back Back: Normal, Nontender - Extremities General upper extremity: Normal inspection, Nontender, Normal color, Normal ROM, Normal temperature General lower extremity: Tender - right thigh ttp without cord or deformity., Normal color, Normal ROM, Normal temperature, Normal weight bearing. No: Beulah's sign - Neurological Neuro grossly intact: Yes Cognition: Normal Orientation: AAOx4 Sameera Coma Scale Eye Opening: Spontaneous Sameera Coma Scale Verbal: Oriented Sameera Coma Scale Motor: Obeys Commands Isabel Coma Scale Total: 15 Speech: Normal Motor strength normal: LUE, RUE, LLE, RLE Sensory: Normal - Psychological Associated symptoms: Normal affect, Normal mood - Skin Skin Temperature: Warm Skin Moisture: Dry Skin Color: Normal Course - Vital Signs Vital signs: Temp Pulse Resp BP Pulse Ox 64 16 146/89 H 98 04/13/19 13:37 04/13/19 13:37 04/13/19 13:37 04/13/19 13:37 - Diagnostic Test Radiology reviewed: Reports reviewed Discharge - Discharge Clinical Impression: Leg pain, right BPH (benign prostatic hyperplasia) Qualifiers: Lower urinary tract symptom presence: symptoms present Lower urinary tract symptom detail: unspecified Qualified Code(s): N40.1 - Benign prostatic hyperplasia with lower urinary tract symptoms Condition: Good Disposition: HOME, SELF-CARE Instructions: Leg Pain Nonspecific ([facility]) Additional Instructions: See your doctor in follow up. Use ice and or heat and return here for any problems or any concerns. Prescriptions: Ibuprofen [Motrin 600 mg Tablet] 600 mg PO Q8HP PRN #30 tablet PRN Reason: [facility]errals: [facility]] - Follow up as needed
--- NOTE | 2019-04-13 15:58 | RADIOLOGY REPORT (SQ) ---
EXAM DESCRIPTION: VENOUS UNILATERAL LOWER COMPLETED DATE/TIME: 04/13/2019 3:29 pm REASON FOR STUDY: right leg pain swelling COMPARISON: None. TECHNIQUE: Dynamic and static colvin scale and color images acquired of the right leg venous system. S elected spectral images acquired with additional compression and augmentation maneuvers. The contrala teral common femoral vein and saphenofemoral junction were also imaged. Images stored on PACS. LIMITATIONS: None. FINDINGS: COMMON FEMORAL: Normal phasicity, compression and augmentation. No visualized echogenic ma terial on colvin scale. No defects on color images. FEMORAL: Normal compression and augmentation. No visualized echogenic material on colvin scale. No defe cts on color images. POPLITEAL: Normal compression, augmentation. No visualized echogenic material on colvin scale. No defec ts on color images. CALF VESSELS: Normal compression, augmentation. No visualized echogenic material on colvin scale. No de fects on color images. GSV and SSV: Normal compression, augmentation. No visualized echogenic material on colvin scale. No def ects on color images. ANY DEEP VENOUS INSUFFICIENCY: Not evaluated. ANY EVIDENCE OF POPLITEAL CYST: No. OTHER: No other significant finding. CONTRALATERAL COMMON FEMORAL VEIN AND SAPHENOFEMORAL JUNCTION: Normal phasicity, compression and augmentation. No visualized echogenic material on colvin scale. No de fects on color images. IMPRESSION: NO EVIDENCE OF DVT OR SVT IN THE RIGHT LEG. TECHNICAL DOCUMENTATION: JOB ID: [id number] [email or web address]- All Rights Reserved Reading location - IP/workstation name: [email or web address]
== END 2019-04-13 16:47 | disposition home or self-care (01) ==
LOC: ER 13:33
DX: M79.651 Pain in right thigh (principal); M79.661 Pain in right lower leg; N40.1 Benign prostatic hyperplasia with lower urinary tract symptoms
CPT/HCPCS: 93971; 99283

== ENCOUNTER → 2019-05-27 | Outpatient (CLI) | payer OTHER ==
--- NOTE | 2019-05-27 11:45 | RADIOLOGY REPORT (SQ) ---
EXAM DESCRIPTION: MRI LUMBAR SPINE WITHOUT COMPLETED DATE/TIME: 05/27/2019 10:22 am REASON FOR STUDY: LOW BACK PAIN (M54.5) M54.5 LOW BACK PAIN COMPARISON: None. TECHNIQUE: Sagittal and Axial imaging includes T1, T2, STIR and gradient echo sequences. Coronal T2/ HASTE imaging. LIMITATIONS: None. FINDINGS: VISUALIZED UPPER ABDOMEN: Limited evaluation. No acute or suspicious findings suggested. SEGMENTATION: No transitional anatomy. The lowest well-developed disc space is labeled L5-S1. ALIGNMENT: Anatomic. VERTEBRAE: Intact. BONE MARROW: Endplate reactive changes at L3-4. DISC SIGNAL: There is decreased T2 signal at L3-4 and L4-5. There is significant narrowing of the L3 -4 and L4-5 disc spaces. Milder decreased T2 signal is seen from L1-L3 and at L5-S1. POSTERIOR ELEMENTS: Generally intact. No pars defect evident. HARDWARE: None in the spine. CORD AND CONUS: Normal in size and signal intensity. Conus at the T12-L1 level. SOFT TISSUES: No aortic aneurysm seen. No bulky retroperitoneal adenopathy or mass. No paraspinal mas s or fluid. L1-L2: Mild concentric disc bulging with no central canal or foraminal stenosis. L2-L3: No significant spinal stenosis or exit foraminal stenosis. L3-L4: Mild concentric disc bulging slightly eccentric in the left neural foramen. Mild foraminal st enosis. The traversing nerve roots on the left appear to be displaced dorsally very slightly. L4-L5: Shallow, broad-based disc bulge with slight dorsal displacement of the traversing nerve roots on the right. The bulging disc may contact the exiting nerve root on the right outside of the neural foramen. L5-S1: No significant spinal stenosis or exit foraminal stenosis. LOWER THORACIC: Incompletely imaged. No stenosis seen. SACRUM: Visualized upper sacrum intact. OTHER: No other significant findings. IMPRESSION: Mild disc changes at several levels. The most significant findings appear to be at L3-4 and L4-5 as described. TECHNICAL DOCUMENTATION: JOB ID: [id number] [email or web address]- All Rights Reserved Reading location - IP/workstation name: [email or web address]
== END ==
LOC: RAD 09:36
PROVIDERS: ATTEND Nurse Practitioner Family
DX: M51.86 Other intervertebral disc disorders, lumbar region (principal); M54.5 Low back pain
CPT/HCPCS: 72148

== ENCOUNTER 2019-09-29 16:20 | Emergency (ER) | payer OTHER ==
--- NOTE | 2019-09-29 16:47 | ER Document Report ---
ED General - General Stated Complaint: CHEST PAIN Time Seen by Provider: 09/29/19 16:27 Primary Care Provider: TERESO RENE FNP [NO LOCAL MD] - Follow up tomorrow (call for appointment and referral to cardiology ) Mode of Arrival: Ambulatory Information source: Patient Notes: 68-year-old male with history of high blood pressure presents to the emergency department with complaints of chest pain on and off for the past month. Reports it feels like somebody sitting on his chest. He also reports shortness of breath with exertion for the past year. Patient reports he was sent here from [facility] where they did do the coronavirus test. He went there due to the shortness of breath and chest pain. He denies fever nausea vomiting diarrhea. Reports he has a bad cough at night. He also reports he is able to lay flat to sleep. He denies covid exposure. Reports he lives with his who is healthy. Denies recent trip out of the country. TRAVEL OUTSIDE OF THE [place] IN LAST 30 DAYS: No - HPI Onset: Other Onset/Duration: Waxing and waning Quality of pain: Pressure Associated symptoms: None Exacerbated by: Walking Relieved by: Denies Similar symptoms previously: Yes Recently seen / treated by doctor: Yes - Related Data Allergies/Adverse Reactions: No Known Allergies Allergy (Verified 12/23/18 18:31) Past Medical History - General Information source: Patient - Social History Smoking Status: Unknown if Ever Smoked Cigarette use (# per day): No Frequency of alcohol use: None Drug Abuse: None Lives with: Family - Family History: Reviewed & Not Pertinent Patient has suicidal ideation: No Patient has homicidal ideation: No - Past Medical History Cardiac Medical History: Reports: Hx Hypertension Denies: Hx Coronary Artery Disease, Hx DVT, Hx Heart Attack Pulmonary Medical History: Denies: Hx Asthma, Hx Bronchitis Endocrine Medical History: Denies: Hx Diabetes Mellitus Type 1, Hx Diabetes Mellitus Type 2 Renal/ Medical History: Reports: Hx Benign Prostatic Hyperplasia. Denies: Hx Kidney Stones, Hx Peritoneal Dialysis Psychiatric Medical History: Reports: Other - insomnia Past Surgical History: Reports: Hx Orthopedic Surgery - left elbow - Immunizations Hx Diphtheria, Pertussis, Tetanus Vaccination: No Review of Systems - Review of Systems Notes: Review HPI for review of systems., All other systems negative Physical Exam - Vital signs Vitals: Resp Pulse Ox 27 H 95 09/29/19 16:42 09/29/19 16:42 - General General appearance: Alert In distress: None - HEENT Head: Normocephalic, Atraumatic Eyes: Normal Conjunctiva: Normal Eyelashes: Normal Pupils: PERRL Mouth/Lips: Normal Mucous membranes: Normal, Moist Pharynx: Normal Neck: Normal, Supple. No: Lymphadenopathy - Respiratory Respiratory status: No respiratory distress Chest status: Nontender Breath sounds: Normal Chest palpation: Normal - Cardiovascular Rhythm: Regular Heart sounds: Normal auscultation Murmur: No - Abdominal Inspection: Normal Distension: No distension Bowel sounds: Normal Tenderness: Nontender Organomegaly: No organomegaly - Back Back: Normal - Extremities General upper extremity: Normal ROM, Normal strength General lower extremity: Normal ROM, Normal strength - Neurological Neuro grossly intact: Yes Cognition: Normal Orientation: AAOx4 Sameera Coma Scale Eye Opening: Spontaneous [place] Coma Scale Verbal: Oriented [place] Coma Scale Motor: Obeys Commands Sameera Coma Scale Total: 15 Speech: Normal - Psychological Associated symptoms: Normal affect, Normal mood - Skin Skin Temperature: Warm Skin Moisture: Dry Skin Color: Normal Course - Re-evaluation Re-evalutation: 09/29/19 21:38 68-year-old male presents with shortness of breath for 1 year and chest pressure for the past month on and off. EKG shows sinus rhythm, 2 negative troponins. Chest x-ray negative. Labs unremarkable. Patient denies chest pressure at this time. Will ambulate patient with pulse ox and repeat EKG. plan on discharging patient home. 09/29/19 21:43 Presentation of chest pain in an otherwise well-appearing patient. Low clinical suspicion for ACS given the clinical history, exam, EKG x2 without ST elevation or depressions, and negative troponin x2. Heart score less 3. PE also seems unlikely given the clinical history, absence of tachycardia or dyspnea. Patient's PERC criteria is negative. Chest x-ray without evidence of pneumothorax or pneumonia. No widened mediastinum. Inferior dissection also seems unlikely given history, symmetric pulses, chest x-ray and vitals. Given the reassuring evaluation, will plan for discharge home at this time with return precautions and follow-up recommendations. Patient has been instructed to return if symptoms worsen or change in any way. The patient demonstrates decision-making capacity and has verbalized an understanding of these risks to me. Based on this, the patient was instructed to follow-up up as an outpatient. Usual chest pain return precautions reviewed. Patient verbalized understanding. Chest X-Ray 09/29/19 16:48 IMPRESSION: 1. No acute pulmonary consolidation. 2. Borderline cardiomegaly suggested. Normal vasculature. Laboratory 09/29/19 09/29/19 09/29/19 16:35 16:35 16:35 WBC 8.0 RBC 5.36 Hgb 15.9 Hct 45.6 MCV 85 MCH 29.6 MCHC 34.8 RDW 13.3 Plt Count 343 Lymph % (Auto) 26.1 [place] % (Auto) 14.4 H Eos % (Auto) 2.8 Baso % (Auto) 1.0 Absolute Neuts (auto) 4.5 Absolute Lymphs (auto) 2.1 Absolute Monos (auto) 1.2 Absolute Eos (auto) 0.2 Absolute Basos (auto) 0.1 Seg Neutrophils % 55.7 Sodium 137.9 Potassium 3.7 Chloride 100 Carbon Dioxide 28 Anion Gap 10 BUN 18 Creatinine 1.15 Est GFR ( Amer) > 60 Est GFR (MDRD) Non-Af > 60 Glucose 118 H Calcium 9.1 Total Bilirubin 0.4 Direct Bilirubin 0.0 Neonat Total Bilirubin Not Reportable Neonat Direct Bilirubin Not Reportable Neonat Indirect Bili Not Reportable AST 21 ALT 19 Alkaline Phosphatase 106 Troponin I < 0.012 Total Protein 7.1 Albumin 3.8 09/29/19 19:45 WBC RBC Hgb Hct MCV MCH MCHC RDW Plt Count Lymph % (Auto) [place] % (Auto) Eos % (Auto) Baso % (Auto) Absolute Neuts (auto) Absolute Lymphs (auto) Absolute Monos (auto) Absolute Eos (auto) Absolute Basos (auto) Seg Neutrophils % Sodium Potassium Chloride Carbon Dioxide Anion Gap BUN Creatinine Est GFR ( Amer) Est GFR (MDRD) Non-Af Glucose Calcium Total Bilirubin Direct Bilirubin Neonat Total Bilirubin Neonat Direct Bilirubin Neonat Indirect Bili AST ALT Alkaline Phosphatase Troponin I < 0.012 Total Protein Albumin 09/29/19 22:17 Patient ambulated around the emergency department with some dyspnea on exertion but O2 sat never dropped below 95%. Denies chest pressure. 09/29/19 22:57 - Vital Signs Vital signs: Temp Pulse Resp BP Pulse Ox 98.3 F 75 18 145/93 H 96 09/29/19 22:42 09/29/19 22:42 09/29/19 22:42 09/29/19 22:42 09/29/19 22:42 - Laboratory Result Diagrams: 09/29/19 16:35 09/29/19 16:35 Laboratory results interpreted by me: 09/29/19 09/29/19 16:35 16:35 [place] % (Auto) 14.4 H Glucose 118 H - Diagnostic Test Radiology reviewed: Image reviewed, Reports reviewed - EKG Interpretation by Me EKG shows normal: Sinus rhythm Rate: Normal Rhythm: NSR When compared to previous EKG there are: No significant change Additional EKG results interpreted by me: 09/29/19 19:[address] elevation no T wave inversion QTC 432 09/29/19 22:57 Second EKG with no change no ST elevation no T wave inversion. Discharge - Discharge Clinical Impression: Chest pressure, Shortness of breath Condition: Stable Disposition: HOME, SELF-CARE Instructions: Chest Pain of Unclear Cause ([facility]) Additional Instructions: *You have been evaluated for chest pressure, shortness of breath *Take medication as prescribed *[facility] as indicated *Return to to the emergency department immediately for return of chest pain, concerns difficulty breathing needs Forms: Elevated Blood Pressure Referrals: TERESO RENE FNP [NO LOCAL MD] - Follow up tomorrow (call for appointment and referral to cardiology )
[2019-09-29 16:59] LABS: ABSOLUTE BASOPHILS # (AUTO) 0.1 10^3/uL (0.0-0.2); ABSOLUTE EOSINOPHILS # (AUTO) 0.2 10^3/uL (0.0-0.6); ABSOLUTE LYMPHOCYTES (AUTO) 2.1 10^3/uL (0.5-4.7); ABSOLUTE MONOCYTES (AUTO) 1.2 10^3/uL (0.1-1.4); ABSOLUTE NEUT (AUTO) 4.5 10^3/uL (1.7-8.2); EOSINOPHILS % (AUTO) 2.8 % (0-6); HEMATOCRIT 45.6 % (37.9-51.0); HEMOGLOBIN 15.9 g/dL (13.5-17.0); LYMPHOCYTES % (AUTO) 26.1 % (13-45); MEAN CORPUSCULAR HEMOGLOBIN 29.6 pg (27.0-33.4); MEAN CORPUSCULAR HGB CONC 34.8 g/dL (32.0-36.0); MEAN CORPUSCULAR VOLUME 85 fl (80-97); MONOCYTES % (AUTO) 14.4 % (3-13); PLATELET COUNT 343 10^3/uL (150-450); RED BLOOD COUNT 5.36 10^6/uL (4.35-5.55); RED CELL DISTRIBUTION WIDTH 13.3 % (11.5-14.0); SEGMENTED NEUTROPHILS % (AUTO) 55.7 % (42-78); TOTAL CELLS COUNTED % (AUTO) 100 %
[2019-09-29 17:23] LABS: ALBUMIN 3.8 g/dL (3.5-5.0); ALKALINE PHOSPHATASE 106 U/L (38-126); ANION GAP 10 (5-19); ASPARTATE AMINO TRANSFERASE 21 U/L (17-59); BILIRUBIN,TOTAL 0.4 mg/dL (0.2-1.3); BLOOD UREA NITROGEN 18 mg/dL (7-20); CALCIUM 9.1 mg/dL (8.4-10.2); CARBON DIOXIDE 28 mmol/L (22-30); CHLORIDE 100 mmol/L (98-107); GLUCOSE 118 mg/dL (75-110); POTASSIUM 3.7 mmol/L (3.6-5.0); TOTAL PROTEIN 7.1 g/dL (6.3-8.2)
--- NOTE | 2019-09-29 17:55 | RADIOLOGY REPORT (SQ) ---
EXAM DESCRIPTION: CHEST SINGLE VIEW IMAGES COMPLETED DATE/TIME: 09/29/2019 5:27 pm REASON FOR STUDY: cp sob COMPARISON: 12/09/2018 EXAM PARAMETERS: NUMBER OF VIEWS: One view. TECHNIQUE: Single frontal radiographic view of the chest acquired. RADIATION DOSE: NA LIMITATIONS: None. FINDINGS: LUNGS AND PLEURA: No acute pulmonary consolidation. No pneumothorax or pleural effusion. MEDIASTINUM AND HILAR STRUCTURES: No masses. Contour normal. HEART AND VASCULAR STRUCTURES: Borderline cardiomegaly suggested. Normal vasculature. BONES: No acute findings. HARDWARE: None in the chest. OTHER: No other significant finding. IMPRESSION: 1. No acute pulmonary consolidation. 2. Borderline cardiomegaly suggested. Normal vasculature. TECHNICAL DOCUMENTATION: JOB ID: [id number] [employer]- All Rights Reserved Reading location - IP/workstation name: [email or web address]
--- NOTE | 2019-09-29 19:56 | EKG REPORT ---
SEVERITY:- BORDERLINE ECG - SINUS RHYTHM BORDERLINE T ABNORMALITIES, INFERIOR LEADS : Confirmed by: Al Macias MD 29-Sep-2019 19:55:46
[2019-09-29 22:20] VITALS: BP 145/93
--- NOTE | 2019-09-30 21:39 | EKG REPORT ---
SEVERITY:- BORDERLINE ECG - SINUS RHYTHM BORDERLINE T ABNORMALITIES, INFERIOR LEADS : Confirmed by: Al Macias MD 30-Sep-2019 21:38:49
== END 2019-09-29 22:30 | disposition home or self-care (01) ==
LOC: ER 16:20
DX: R07.9 Chest pain, unspecified (principal); R06.02 Shortness of breath; I10 Essential (primary) hypertension
CPT/HCPCS: 36415; 71045; 80053; 84484; 85025; 93005; 93010; 99285

== ENCOUNTER → 2020-02-22 | Outpatient (CLI) | payer OTHER ==
[2020-02-22 10:53] LABS: ARTERIAL BLOOD BASE EXCESS -3.1 mmol/L; ARTERIAL BLOOD H2CO3 0.87 mmol/L (1.05-1.35); ARTERIAL BLOOD HCO3 19.5 mmol/L (20-24); ARTERIAL BLOOD O2 SATURATION 96.3 % (94-98); ARTERIAL BLOOD PH 7.45 (7.35-7.45); ARTERIAL BLOOD PO2 79.3 mmHg (80-100); ARTERIAL BLOOD TOTAL CO2 20.4 mmol/L (23-27)
[2020-02-22 10:58] LABS: ARTERIAL BLOOD FIO2 ROOM AIR
== END ==
LOC: OD 09:49
PROVIDERS: ATTEND Internal Medicine Pulmonary Disease
DX: R06.00 Dyspnea, unspecified (principal)
CPT/HCPCS: 36415; 82803; 83880

== ENCOUNTER → 2020-06-14 | Outpatient (CLI) | payer OTHER ==
[2020-06-14 11:27] LABS: ABSOLUTE BASOPHILS # (AUTO) 0.1 10^3/uL (0.0-0.2); ABSOLUTE EOSINOPHILS # (AUTO) 0.1 10^3/uL (0.0-0.6); ABSOLUTE LYMPHOCYTES (AUTO) 2.1 10^3/uL (0.5-4.7); ABSOLUTE NEUT (AUTO) 4.9 10^3/uL (1.7-8.2); BASOPHILS % (AUTO) 1.3 % (0-2); EOSINOPHILS % (AUTO) 0.9 % (0-6); HEMATOCRIT 46.4 % (37.9-51.0); HEMOGLOBIN 15.8 g/dL (13.5-17.0); MEAN CORPUSCULAR HEMOGLOBIN 28.4 pg (27.0-33.4); MEAN CORPUSCULAR VOLUME 84 fl (80-97); MONOCYTES % (AUTO) 12.6 % (3-13); PLATELET COUNT 279 10^3/uL (150-450); RED BLOOD COUNT 5.56 10^6/uL (4.35-5.55); RED CELL DISTRIBUTION WIDTH 14.3 % (11.5-14.0); SEGMENTED NEUTROPHILS % (AUTO) 59.2 % (42-78); TOTAL CELLS COUNTED % (AUTO) 100 %; WHITE BLOOD COUNT 8.2 10^3/uL (4.0-10.5)
[2020-06-14 11:57] LABS: ANION GAP 9 (5-19); BLOOD UREA NITROGEN 20 mg/dL (7-20); CALCIUM 9.6 mg/dL (8.4-10.2); CARBON DIOXIDE 27 mmol/L (22-30); CHLORIDE 103 mmol/L (98-107); GLUCOSE 126 mg/dL (75-110); POTASSIUM 4.4 mmol/L (3.6-5.0)
== END ==
LOC: OD 10:32
PROVIDERS: ATTEND Internal Medicine Pulmonary Disease
DX: R05 Cough (principal)
CPT/HCPCS: 36415; 80048; 85025